=== PATIENT | female | born 1940 | race Caucasian/White ===

== ENCOUNTER 2019-09-08 06:57 | Emergency (ER) | payer OTHER, BC ==
--- OUTSIDE RECORDS SUMMARY | 2019-09-08 06:59 | XMS REPORT ---
:1940 [facility] [address] [place] [address] [address] [place] [address] Care Team Providers Name Role Phone Unavailable Unavailable Unavailable Payers Payer Name Policy Type Policy Number Effective Date Expiration Date Problems This patient has no known problems. Allergies, Adverse Reactions, Alerts Allergy Allergy Status Severity Reaction(s) Onset Inactive Treating Comments Name Type Date Date Clinician No Known DA Active U 2006-12 Contrast -13 Allergies 00:00:0 0 No Known DA Active U 2006-12 Drug -13 Allergies 00:00:0 0 No Known DA Active U 2006-12 Food -13 Allergies 00:00:0 0 No Known DA Active U 2006-12 Other -13 Allergies 00:00:0 0 Medications This patient has no known medications.
[2019-09-08] MEDS ORDERED: NA CHLORIDE 0.9% 500 ML ONE (07:25)
[2019-09-08 07:47] LABS: Absolute Lymphocytes (CBC) 1.2 K/uL (0.7-4.9); Basophils % 0.7 % (0-1.3); Hematocrit 41.4 % (36.0-45.0); Lymphocytes % 15.2 % (15.3-44.8); MPV 10.4 fL (7.6-11.3); RBC Red Blood Cell Count 4.46 M/uL (3.86-4.86)
[2019-09-08 07:49] LABS: Protime INR 0.92
[2019-09-08 07:54] LABS: BUN Blood Urea Nitrogen 20 mg/dL (7-18); Bicarbonate 32 mmol/L (21-32); Glucose Level 112 mg/dL (74-106); Magnesium 2.4 mg/dL (1.8-2.4); Potassium 4.6 mmol/L (3.5-5.1); Sodium Level 141 mmol/L (136-145); Troponin (Emerg Dept Use Only) < 0.02 ng/mL (0.0-0.045)
--- NOTE | 2019-09-08 07:58 | RAD REPORT ---
EXAM DESCRIPTION: CT - Head Brain Wo Cont - 09/08/2019 7:34 am CLINICAL HISTORY: Dizziness COMPARISON: None. TECHNIQUE: Computed axial tomography of the head was obtained. IV contrast was not requested. All CT scans are performed using dose optimization technique as appropriate and may include automated exposure control or mA/KV adjustment according to patient size. FINDINGS: An intracranial bleed is not seen . The ventricles are normal in caliber. No extra-axial fluid collection is noted. Fluid within the sinuses/ mastoids is not seen. IMPRESSION: No acute intracranial abnormality is seen. If patient's symptoms persist MRI of the bra in would be recommended.
[2019-09-08 08:31] LABS: Urine Blood NEGATIVE (NEG); Urine Glucose NEGATIVE (NEG); Urine Protein NEGATIVE (NEG); Urine Specific Gravity 1.015 (1.005-1.030)
--- NOTE | 2019-09-08 09:11 | RAD REPORT ---
EXAM DESCRIPTION: Heidy Angio09/08/2019 8:49 am CLINICAL HISTORY: Syncope and headaches COMPARISON: None TECHNIQUE: 50 cc Isovue 370 was administered intravenously. 3D MIP reconstruction performed All CT scans are performed using dose optimization technique as appropriate and may include automated exposure control or mA/KV adjustment according to patient size. FINDINGS: Mild plaque is present within the the carotid arteries. A high-grade stenosis does not involve the common carotid, internal carotid or external carotid arter ies. The vertebral arteries are codominant without abnormality. IMPRESSION: Mild plaque within the carotid arteries NASCET criteria used. Mild 0-49% stenosis Moderate 50-69% stenosis Severe 70-99% stenosis
--- NOTE | 2019-09-08 09:17 | RAD REPORT ---
EXAM DESCRIPTION: CTHead angio09/08/2019 8:49 am CLINICAL HISTORY: Syncope and headache COMPARISON: None TECHNIQUE: CT angiogram of the head was obtained. 3D MIPS reconstruction performed. All CT scans are performed using dose optimization technique as appropriate and may include automated exposure control or mA/KV adjustment according to patient size. FINDINGS: The basilar,, anterior cerebral, middle cerebral and posterior cerebral arteries are seble l caliber. An aneurysm is not seen. Calcified plaque is present within the distal internal carotid ar teries. origin left posterior cerebral artery A significant stenosis is not noted. IMPRESSION: No acute abnormality displayed
--- NOTE | 2019-09-08 09:39 | EDPHYS ---
Physician Documentation [facility] Name: Meagan Berger Age: 79 yrs Sex: Female : 1940 Arrival Date: 09/08/2019 Time: 06:58 Bed 20 Private MD: ED Physician Babar Doyle HPI: 09/08 07:19 This 79 yrs old Female presents to ER via Ambulatory with complaints of High rn Blood Pressure, Dizziness. 07:19 The patient has elevated blood pressure and discovered this at home. Onset: The rn symptoms/episode began/occurred this morning. Modifying factors:. Severity of symptoms: At its worst the blood pressure was moderate, in the emergency department the blood pressure is unchanged. The patient has experienced similar episodes in the past. Reports high blood pressure since this AM, assoc with dizziness, woke up around 0300 with symptoms, went back to sleep, woke up with right sided head pressure and feeling dizzy, no syncope. Otherwise denies chest pain/sob/abd pain/vomiting/diarrhea/rash. Currently denies dizziness. Denies focal weakness/numbness/vision changes/speech. Reports BP high for last week or so. . Historical: - Allergies: 07:09 No Known Allergies; sv - Home Meds: 07:27 meloxicam oral oral [Active]; losartan 100 mg oral tab [Active]; hydrochlorothiazide 25 sv mg Oral tab [Active]; - PMHx: 07:09 Hypertension; sv - PSHx: 07:09 ankle surgery; sv - Immunization history:: Adult Immunizations up to date. - Social history:: Smoking status: Patient/guardian denies using tobacco. - Ebola Screening: : No symptoms or risks identified at this time. - Family history:: not pertinent. - Hospitalizations: : No recent hospitalization is reported. ROS: 07:19 Constitutional: Negative for fever, chills, and weight loss, Eyes: Negative for injury, rn pain, redness, and discharge, ENT: Negative for injury, pain, and discharge, Neck: Negative for injury, pain, and swelling, Cardiovascular: Negative for chest pain, palpitations, and edema, Respiratory: Negative for shortness of breath, cough, wheezing, and pleuritic chest pain, Abdomen/GI: Negative for abdominal pain, nausea, vomiting, diarrhea, and constipation, Back: Negative for injury and pain, : Negative for injury, bleeding, discharge, and swelling, MS/Extremity: Negative for injury and deformity, Skin: Negative for injury, rash, and discoloration, Neuro: Negative for weakness, numbness, tingling, and seizure. Exam: 07:19 Constitutional: This is a well developed, well nourished patient who is awake, alert, rn and in no acute distress. Head/Face: Normocephalic, atraumatic. Eyes: Pupils equal round and reactive to light, extra-ocular motions intact. Lids and lashes normal. Conjunctiva and sclera are non-icteric and not injected. Cornea within normal limits. Periorbital areas with no swelling, redness, or edema. ENT: MMM Neck: Trachea midline, no thyromegaly or masses palpated, and no cervical lymphadenopathy. Supple, full range of motion without nuchal rigidity, or vertebral point tenderness. No Meningismus. Cardiovascular: Regular rate and rhythm. No pulse deficits. Respiratory: No increased work of breathing, no retractions or nasal flaring. Abdomen/GI: soft, non-tender Skin: Warm, dry, no evidence of cellulitis. MS/ Extremity: Pulses equal, no cyanosis. Neurovascular intact. Full, normal range of motion. Equal circumference. Neuro: Awake and alert, GCS 15, oriented to person, place, time, and situation. Cranial nerves II-XII grossly intact. Motor strength 5/5 in all extremities. Sensory grossly intact. Cerebellar exam normal. 09:23 ECG was reviewed by the Attending Physician. rn Vital Signs: 07:09 BP 184 / 77; Pulse 91; Resp 16; Temp 98.4(O); Pulse Ox 99% ; Weight 58.97 kg; Height 5 sv ft. 4 in. (162.56 cm); Pain 3/10; 07:47 BP 147 / 64; Pulse 67; Resp 18; Pulse Ox 98% on R/A; sv 09:01 BP 151 / 58; Pulse 63; Resp 17; Pulse Ox 99% on R/A; sv 07:09 Body Mass Index 22.32 (58.97 kg, 162.56 cm) sv MDM: 07:04 Patient medically screened. rn 09:24 Differential diagnosis: hypertensive crisis, Malignant HTN, CVA, intracerebral rn hemorrhage. Differential diagnosis: vertigo. Data reviewed: vital signs, nurses notes, lab test result(s), EKG, radiologic studies, CT scan, and as a result, I will discharge patient. Counseling: I had a detailed discussion with the patient and/or guardian regarding: the historical points, exam findings, and any diagnostic results supporting the discharge/admit diagnosis, lab results, radiology results, the need for outpatient follow up, to return to the emergency department if symptoms worsen or persist or if there are any questions or concerns that arise at home. Response to treatment: the patient's symptoms have markedly improved after treatment, and as a result, I will discharge patient. Special discussion: I discussed with the patient/guardian in detail that at this point there is no indication for admission to the hospital. It is understood, however, that if the symptoms persist or worsen the patient needs to return immediately for re-evaluation. ED course: Pt has appt tomorrow with PCP, no acute findings today, neg ct head and ct head/neck angio. Normal neuro exam. . 09:26 Counseling: I had a detailed discussion with the patient and/or guardian regarding: the rn presence of at least one elevated blood pressure reading (>120/80) during this emergency department visit. Special discussion: I have referred the patient to see his PCP for further evaluation of high blood pressure. 09/08 07:16 Order name: Basic Metabolic Panel; Complete Time: 07:59 rn 09/08 07:16 Order name: CBC with Diff; Complete Time: 07:59 rn 09/08 07:16 Order name: Magnesium; Complete Time: 07:59 rn 09/08 07:16 Order name: Protime (+inr); Complete Time: 07:59 rn 09/08 07:16 Order name: Ptt, Activated; Complete Time: 07:59 rn 09/08 07:16 Order name: Troponin (emerg Dept Use Only); Complete Time: 07:59 rn 09/08 07:16 Order name: CT Head Brain wo Cont; Complete Time: 07:59 rn 09/08 07:16 Order name: EKG; Complete Time: 07:17 rn 09/08 07:34 Order name: Glucose, Ancillary Testing; Complete Time: 07:59 EDMS 09/08 08:00 Order name: CT Head Angio; Complete Time: 09:34 rn 09/08 08:00 Order name: CT Neck Angio; Complete Time: 09:23 rn 12/09 08:19 Order name: Urine Dipstick--Ancillary (enter results); Complete Time: 08:33 bd 09/08 07:16 Order name: Cardiac monitoring; Complete Time: 07:38 rn 09/08 07:16 Order name: EKG - Nurse/Tech; Complete Time: 08:44 rn 09/08 07:16 Order name: IV Saline Lock; Complete Time: 07:26 rn 09/08 07:16 Order name: Labs collected and sent; Complete Time: 07: rn 09/08 07:16 Order name: O2 Per Protocol; Complete Time: 07:26 rn 09/08 07:16 Order name: O2 Sat Monitoring; Complete Time: 07: rn 09/08 07:16 Order name: Urine Dipstick-Ancillary (obtain specimen); Complete Time: 08:22 rn EC: Rate is 73 beats/min. Rhythm is regular. Left axis deviation noted. QRS is positive in rn lead I and negative in lead aVF. OR interval is normal. QRS interval is normal. QT interval is normal. No Q waves. T waves are Normal. No ST changes noted. Clinical impression: NSR w/ Non-specific ST/T Changes. Interpreted by me. Reviewed by me. Administered Medications: :26 Drug: NS 0.9% 500 ml Route: IV; Rate: bolus; Site: left antecubital; sv 09:00 Follow up: Response: No adverse reaction; IV Status: Completed infusion; IV Intake: sv 500ml Disposition: 09/08/19 09:25 Discharged to Home. Impression: Dizziness and giddiness. - Condition is Stable. - Discharge Instructions: Dizziness, Hypertension. - Prescriptions for Meclizine 25 mg Oral Tablet - take 1 tablet by ORAL route every 8 hours As needed; 30 tablet. - Medication Reconciliation Form, Thank You Letter, Antibiotic Education, Prescription Opioid Use form. - Follow up: Private Physician; When: As needed; Reason: Recheck today's complaints, Re-evaluation by your physician. - Problem is new. - Symptoms have improved. Signatures: Dispatcher [employer] Erin Kuhn RN RN sv Nieto, Roman, MD MD project management intern: (The following items were deleted from the chart) 07:22 07:19 Constitutional: Negative for fever, chills, and weight loss, Eyes: Negative for rn injury, pain, redness, and discharge, ENT: Negative for injury, pain, and discharge, Neck: Negative for injury, pain, and swelling, Cardiovascular: Negative for chest pain, palpitations, and edema, Respiratory: Negative for shortness of breath, cough, wheezing, and pleuritic chest pain, Abdomen/GI: Negative for abdominal pain, nausea, vomiting, diarrhea, and constipation, Back: Negative for injury and pain, : Negative for injury, bleeding, discharge, and swelling, MS/Extremity: Negative for injury and deformity, Skin: Negative for injury, rash, and discoloration, Neuro: Negative for headache, weakness, numbness, tingling, and seizure, rn 08:05 08:01 Neck Angio+CT.RAD.BRZ ordered. EDAK EDMS 09:51 09:25 09/08/2019 09:25 Discharged to Home. Impression: Dizziness and giddiness. sv Condition is Stable. Forms are Medication Reconciliation Form, Thank You Letter, Antibiotic Education, Prescription Opioid Use. Follow up: Private Physician; When: As needed; Reason: Recheck today's complaints, Re-evaluation by your physician. Problem is new. Symptoms have improved. rn
--- NOTE | 2019-09-08 09:39 | ER ---
Nurse's Notes [facility] Name: Meagan Berger Age: 79 yrs Sex: Female : 1940 Arrival Date: 09/08/2019 Time: 06:58 Bed 20 Private MD: Diagnosis: Dizziness and giddiness Presentation: 09/08 07:01 Presenting complaint: Patient states: went to bed around 2330 with no symptoms like sv right now. c/o right temporal "pressure" and dizziness around 0300, checked her BP and it was high; went back to sleep. Woke up again around 0400 with the same symptoms. Reports taking her medicine daily as prescribed and her BP have been elevated the last week. Transition of care: patient was not received from another setting of care. Onset of symptoms was September 08, 2019 at 03:00. Risk Assessment: Do you want to hurt yourself or someone else? Patient reports no desire to harm self or others. Care prior to arrival: None. 07:01 Method Of Arrival: Ambulatory sv 07:01 Acuity: RAMESH 2 sv 07:15 Initial Sepsis Screen: Does the patient meet any 2 criteria? No. Patient's initial sv sepsis screen is negative. Does the patient have a suspected source of infection? No. Patient's initial sepsis screen is negative. Triage Assessment: 07:05 General: Appears in no apparent distress. comfortable, well groomed, well developed, sv Behavior is calm, cooperative, appropriate for age. Pain: Complains of pain in right amish Pain currently is 3 out of 10 on a pain scale. Quality of pain is described as pressure, Pain began 0300 Is continuous. Neuro: Level of Consciousness is awake, alert, obeys commands, Oriented to person, place, time, situation, Manager [employer] are equal bilaterally Moves all extremities. Full function Gait is steady, Speech is normal, Facial symmetry appears normal, Denies dizziness, numbness. Cardiovascular: Patient's skin is warm and dry. Pulses are 3+ in right brachial artery and left brachial artery Chest pain is denied. Respiratory: Airway is patent Respiratory effort is even, unlabored, Respiratory pattern is regular, symmetrical. Derm: Skin is pink, warm \\T\\ dry. Musculoskeletal: Range of motion: intact in all extremities. Historical: - Allergies: 07:09 No Known Allergies; sv - Home Meds: 07:27 meloxicam oral oral [Active]; losartan 100 mg oral tab [Active]; hydrochlorothiazide 25 sv mg Oral tab [Active]; - PMHx: 07:09 Hypertension; sv - PSHx: 07:09 ankle surgery; sv - Immunization history:: Adult Immunizations up to date. - Social history:: Smoking status: Patient/guardian denies using tobacco. - Ebola Screening: : No symptoms or risks identified at this time. - Family history:: not pertinent. - Hospitalizations: : No recent hospitalization is reported. Screenin:05 VAN Screening: Arm Drift: Patient shows no arm weakness. Patient is VAN negative. sv 07:10 Abuse screen: Denies threats or abuse. Denies injuries from another. Nutritional sv screening: No deficits noted. Tuberculosis screening: No symptoms or risk factors identified. Fall Risk No fall in past 12 months (0 pts). No secondary diagnosis (0 pts). No IV (0 pts). Ambulatory Aid- None/Bed Rest/Nurse Assist (0 pts). Gait- Normal/Bed Rest/Wheelchair (0 pts) Mental Status- Oriented to own ability (0 pts). Total Perez Fall Scale indicates No Risk (0-24 pts). Assessment: 07:47 Reassessment: Patient appears in no apparent distress at this time. No changes from sv previously documented assessment. Patient and/or family updated on plan of care and expected duration. Pain level reassessed. Patient is alert, oriented x 3, equal unlabored respirations, skin warm/dry/pink. 09:27 Reassessment: Patient appears in no apparent distress at this time. No changes from sv previously documented assessment. Patient and/or family updated on plan of care and expected duration. Pain level reassessed. Patient is alert, oriented x 3, equal unlabored respirations, skin warm/dry/pink. Dr Doyle at the bedside speaking with pt regarding results. 09:50 Reassessment: Patient appears in no apparent distress at this time. No changes from sv previously documented assessment. Patient and/or family updated on plan of care and expected duration. Pain level reassessed. Patient is alert, oriented x 3, equal unlabored respirations, skin warm/dry/pink. Vital Signs: 07:09 BP 184 / 77; Pulse 91; Resp 16; Temp 98.4(O); Pulse Ox 99% ; Weight 58.97 kg; Height 5 sv ft. 4 in. (162.56 cm); Pain 3/10; 07:47 BP 147 / 64; Pulse 67; Resp 18; Pulse Ox 98% on R/A; sv 09:01 BP 151 / 58; Pulse 63; Resp 17; Pulse Ox 99% on R/A; sv 07:09 Body Mass Index 22.32 (58.97 kg, 162.56 cm) sv ED Course: 06:58 Patient arrived in ED. as 07:00 Erin Sheikh, RN is Primary Nurse. sv 07:01 Patient has correct armband on for positive identification. Bed in low position. Call sv light in reach. Adult w/ patient. Pulse ox on. NIBP on. Door closed. Head of bed elevated. 07:04 Lex Romeo NP is PHCP. pm1 07:04 Babar Doyle MD is Attending Physician. rn 07:05 ED physician to see patient. sv 07:09 Triage completed. sv 07:10 Arm band placed on. sv 07:20 Inserted saline lock: 20 gauge in left antecubital area, using aseptic technique. Blood sv collected. Flushed left antecubital with 5 ml normal saline. 07:26 Warm blanket given. sv 07:[address] via stretcher. sv 07:33 CT Head Brain wo Cont In Process Unspecified. EDMS 07:[address]. sv 07:44 Awaiting lab results, Awaiting radiology results. sv 08:10 Urine collected: clean catch specimen, clear. dh3 08:21 Urine Dipstick--Ancillary (enter results) Sent. sv 08:[address] Scan. sv 08:[address] via wheelchair. sv 08:37 Patient moved back from CT. sv 08:37 Awaiting radiology results. sv 08:51 CT Head Angio In Process Unspecified. EDMS 08:51 CT Neck Angio In Process Unspecified. EDMS 09:07 EKG done, by infectious disease technician. reviewed by Babar Doyle MD. tc 09:12 Awaiting radiology results. sv 09:50 No provider procedures requiring assistance completed. IV discontinued, intact, sv bleeding controlled, No redness/swelling at site. Pressure dressing applied. Administered Medications: 07:26 Drug: NS 0.9% 500 ml Route: IV; Rate: bolus; Site: left antecubital; sv 09:00 Follow up: Response: No adverse reaction; IV Status: Completed infusion; IV Intake: sv 500ml Intake: 09:00 IV: 500ml; Total: 500ml. sv Outcome: : Discharge ordered by . rn :51 Discharged to home ambulatory, with friend. sv :51 Condition: stable :51 Discharge instructions given to patient, Instructed on discharge instructions, follow up and referral plans. medication usage, Demonstrated understanding of instructions, follow-up care, medications, Prescriptions given X 1. :51 Patient left the ED. sv Signatures: Dispatcher [employer] EDMS Erin Sheikh RN RN sv Martinez, Amelia as Nieto, Roman, MD MD rn Callis, Tiffany, digital production artist EKG Ttc Lex Romeo, DINORAH POCKET SECRETARY ASSEMBLER pm1 Leydi Yuen 3 Corrections: (The following items were deleted from the chart) 08:22 07:09 BP 184 / 77; Pulse 91bpm; Resp 16bpm; Pulse Ox 99%; 58.97 kg; Height 5 ft. 4 in.; sv BMI: 22.3; Pain 3/10; sv
[2019-09-08 10:09] VITALS: TEMP 98.4
[2019-09-08 10:13] VITALS: BP 151/58; O2SAT 99
--- NOTE | 2019-09-08 13:01 | EKG ---
Test Date: 2019-09-08 Test Time: 08:45:50 Intelligence Consultant: LESTER MEASUREMENT RESULTS: Intervals: Rate: 73 CO: 202 QRSD: 88 QT: 392 QTc: 431 Hastings: P: 55 CO: 202 QRS: -37 T: 42 INTERPRETIVE STATEMENTS: Normal sinus rhythm Left axis deviation Voltage criteria for left ventricular hypertrophy Abnormal ECG Compared to ECG 04/08/1994 13:02:00 Left-axis deviation now present Sinus arrhythmia no longer present Electronically Signed On 09-08-19 13:00:27 [employer] by Mason Ramirez
== END 2019-09-08 09:51 | disposition home or self-care (01) ==
LOC: ER 06:57
DX: R42 Dizziness and giddiness (principal)
CPT/HCPCS: 96361; 93005; 85025; 80048; 36415; 83735; 85610; 82947; 85730; 81003; 84484; 70450; 70496; 70498; 96360; 99285; Q9967; J7040

== ENCOUNTER 2023-03-31 08:31 | Emergency (ER) | payer OTHER ==
--- OUTSIDE RECORDS SUMMARY | 2023-03-31 08:38 | XMS REPORT | Continuity of Care Document ---
:1940 Author Organization [facility] t Address [address] [place] [address] [place] [id number] Care Team Providers Name Role Phone Jerzy Sotelo Primary Care Physician Sonal Berrios MD Attending Clinician [phone] Heri Pauline Farr MA Attending Clinician Unavailable Rg Isbell MD Attending Clinician Jerzy Sotelo Attending Clinician Power Zaman MD Attending Clinician Jose A Flores RPH Attending Clinician Unavailable Maurice Henderson Attending Clinician Unavailable Rabia Isidro Attending Clinician Unavailable Maryam Holley MA Attending Clinician Unavailable LEAH VALLADARES Attending Clinician Unavailable MAURICE HENDERSON M.D. Attending Clinician Unavailable Kurt Villeda Attending Clinician Maurice Henderson Admitting Clinician Unavailable Physician, No Primary or Family Admitting Clinician Unavaila ble Payers Payer Name Policy Type Policy Number Effective Date Expiration Date S ource Problems Condition Condition Condition Status Onset Resolution Last Treating Co mments Source Name Details Category Date Date Treatment Clinician Date Need for Need for Disease Active Metho di hepatitis hepatitis - st B B 00:00: Hospita vaccinatio vaccinatio 00 l n n Inflammato Inflammato Disease Active 2021-10 M ethodi ry ry 10-15 st arthritis arthritis 00:00: Hosp leticia 00 l CKD CKD Disease Active 2021-10 Methodi (chronic (chronic 10-15 kidney kidney 00:00: Hospita disease), disease), 00 l stage III stage III Low Low Disease Active Methodi vitamin D vitamin D 12-19 level level 00:00: Hospita 00 l Prediabete Prediabete Disease Active M ethodi s s 12-19 00:00: Hospita 00 l Hyperlipid Hyperlipid Disease Active M ethodi emia emia 12-19 00:00: Hospita 00 l Hypertensi Hypertensi Disease Active M ethodi on on 12-19 00:00: Hospita 00 l Pseudophak Pseudophak Disease Active M ethodi ia ia 02-01 st 00:00: Hospita 00 l Pseudophak Pseudophak Disease Active M ethodi ia ia 02-01 00:00: Hospita 00 l Bilateral Bilateral Disease Active Met hodi posterior posterior 02-01 st capsular capsular 00:00: Hospit a opacificat opacificat 00 l ion ion Osteoporos Osteoporos Disease Active M ethodi is is 01-20 00:00: Hospita 00 l Osteoarthr Osteoarthr Disease Active 2019-10 M ethodi itis itis 0 st 00:00: Hospita 00 l Uveitis Uveitis Disease Active Methodi 05-08 00:00: Hospita 00 l 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 05-08 borderline borderline 00:00: Ho spita glaucoma glaucoma 00 l BDDC-COLON BDDC-COLO Diagnosis Active 2014-05-04 Memoria SCREENING N 05-01 11:19:00 l SCREENING 00:00: [place] Active 00 05/01/2014 [facility] NEW PT/ NEW PT/ Diagnosis Active 2014-04-29 Memoria COLONOSCOP COLONOSCOP 04-16 15:54:00 l Y/ Y/ 00:00: [place] HEMROIDS / HEMROIDS / 00 FAMILY H FAMILY H Active 04/16/2014 [facility] 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 7-25 st occlusion occlusion 00:00: Hosp leticia 00 l Pure Pure Disease Active Methodi hyperchole hyperchole 7-[address] sterolemia sterolemia 00:00: Ho spita 00 l Hyperlipid Hyperlipid Problem Active U T emia emia Physici ans Hypertensi Hypertensi Problem Active U T on on Physici ans Low Low Problem Active UT vitamin D vitamin D Phys ici level level ans Carotid Carotid Problem Active [facility] [place] Physici ans Cough in Cough in Problem Active UT adult adult Physici ans Hyperglyce Hyperglyce Problem Active U T fracisco fracisco Physici ans Preventive Preventive Problem Active U T antibiotic antibiotic Ph ysici ans Wheezing Wheezing Problem Active UT Physici ans ROUTINE ROUTINE Diagnosis Active 2014-04-29 [facility] 15:54:00 l EXAM EXAM [place] Active [facility] Benign Benign Problem Resolve 2014-05-06 [facility] oria essential essential d 23:31:36 l hypertensi hypertensi He rmann on on (disorder) (disorder) Resolved Problem 05/06/2014 [facility] Generalize Generaliz Problem Resolve 2014-05-06 Memoria d ed d 23:31:36 l osteoarthr osteoarthr He rmann itis of itis of the hand the hand (disorder) (disorder) Resolved Problem 05/06/2014 [facility] Hyperchole Hyperchol Problem Resolve 2014-05-06 [facility] sterolemia esterolemi d 23:31:36 l (disorder) a Nik n (disorder) Resolved Problem 05/06/2014 [facility] History of History Problem Resolve 2014-05-06 [facility] polyp of of polyp d 23:31:36 l colon of colon [place] (situation (situation ) ) Resolved Problem 05/06/2014 [facility] Allergies, Adverse Reactions, Alerts Allergy Allergy Status Severity Reaction(s) Onset Inactive Treating Comm ents Source Name Type Date Date Clinician No Known Propensi Active Method i Drug ty to 04-06 st Allergie adverse 00:00: Hospita s reaction 00 l s to drug No Known DA Active U [facility] Contrast 4- [place] Allergie 00:00: d s 00 [facility] No Known DA Active U [facility] Drug - [place] Allergie 00:00: d s [facility] No Known DA Active U [facility] Food 4-13 [place] Allergie 00:00: d s 00 [facility] No Known DA Active U 2006- [facility] Other 4-13 [place] Allergie 00:[facility]: d s [facility] Family History Family Member Diagnosis Comments Start Date Stop Date Source Natural brother Cancer [facility] Natural brother Hypertension [facility] Natural [facility] father Hypertension [facility] Maternal Stroke Bahai grandmother [facility] Natural mother Heart disease [facility] Natural mother Hyperlipidemia Method [facility] Natural mother Hypertension [facility] Other Glaucoma [facility] Other Heart disease [facility] Other Hypertension [facility] Other Macular degeneration Meth [facility] Social History Social Habit Start Date Stop Date Quantity Comments Source Gender identity [facility] Sexual orientation Method [facility] Alcohol intake 2023-02-12 2023-02-12 Current drinker [facility]o dist 00:00:00 00:00:00 of [facility] (finding) History of Social 2023-02-12 2023-02-[address] function 00:00:00 00:00:00 Hospital Tobacco use and 2022-08-15 2022-08-15 Smokeless Bahai exposure 00:00:00 00:00:00 tobacco non-user [facility] Alcohol Comment 2022-02-21 2022-02-21 rarely Bahai 00:00:00 00:00:00 [facility] Social History 2014-04-29 2014-04-29 [facility]rick 21:20:48 21:20:48 Sex [birth year] Bahai 00:00:00 00:00:00 [facility] Smoking Status Start Date Stop Date Source Never smoked tobacco [facility] ospital Medications Ordered Filled Start Stop Current Ordering Indication Dosage Frequency Signature Comments Components Source Medication Medication Date Date Medication? Clinician (SIG) Name Name tobramycin- 2022- No 1[drp] Q.25D Administer Methodi dexAMETHaso 02-[address] ne 00:00: 04:59 the right Hospita (Tobradex) 00 :00 eye 4 l 0.3-0.1 % (four) ophthalmic times a solution day for 7 days. neomycin-po 2022- No Q.25D Administer Methodi lymyxin-dex 02-[address] AMETHasone 00:00: 04:59 right eye H ospita (MAXITROL) 00 :00 every 6 l 3.5 (six) mg/g-10,000 hours for unit/g-0.1 7 days. % ointment Recommend applying 4 times per day to right lower eyelid sulfaSALAzi 2022-0 2023- No 500mg Q.5D Take 1 Me thodi ne 5-15 05-[address] (AZULFIDINE 11:51: 00:00 (500 mg Ho spita ) 500 mg 38 :00 total) by l tablet mouth 2 (two) times a day. denosumab 2022-0 Yes 60mg Q180D Inject 1 Met hodi (PROLIA) 60 5-15 mL ([address] mg/mL 11:50: total) Hospita syringe 37 under the l syringe skin every 6 (six) months. omega-3 2022-0 Yes 2g QD Take 2 Methodi fatty 5-[address] acids-fish 11:10: (2 g Hospita oil 36 total) by l 300-1,000 mouth mg capsule daily. tumeric-gin 0 Yes Take by Met hodi g-olive-ore 5-[address] g-capryl 11:09: Hospita 100 mg-150 51 l mg- 50 mg-150 mg capsule zinc 2022-0 Yes 1{capsu QD Take 1 Methodi sulfate 5-15 le} capsule by st (ZINCATE) 11:09: mouth Hospita 50 mg zinc 51 daily. l (220 mg) capsule calcium 2022-0 Yes 1{tbl} Q.5D Take 1 Method i carbonate/v 5-[address] itamin D3 11:09: mouth 2 Hospi ta (CALCIUM 51 (two) l 600 WITH times a VITAMIN D3 day. ORAL) hydroxychlo 2022-0 Yes 200mg QD Take 1 Met hodi roquine 5-[address] (PLAQUENIL) 11:09: (200 mg Hos yoni 200 mg 51 total) by l tablet mouth daily. aspirin 81 2022-0 Yes 81mg QD Chew 1 Metho di mg chewable 5-15 tablet (81 st tablet 11:09: mg total) Hospit a 51 daily. l guanFACINE 2022-0 Yes 2mg QD Take 1 Metho di (TENEX) 2 5-15 tablet (2 st MG tablet 11:09: mg total) Hos yoni 51 by mouth l nightly. tiZANidine 2021-1 Yes 4mg QD Take 1 Metho di (ZANAFLEX) 2-28 tablet (4 st 4 MG tablet 00:00: mg total) H ospita 00 by mouth l nightly. cholecalcif 2021-10 202- No 2000U Q.5W Take 2,000 Methodi brigid, 1-15 11-[address] vitamin D3, 10:23: 00:00 mouth 2 Ho spita (VITAMIN 04 :00 (two) l D3) 2,000 times a unit week. capsule capsule hydrOXYchlo 2021-0 Yes 200mg QD Take 200 M ethodi roQUINE 8-[address] (PLAQUENIL) 11:29: mouth Hospi ta 200 mg 01 daily. l tablet sulfaSALAzi 2021-0 Yes 500mg Q.5D Take 500 M ethodi ne 8-[address] (AZULFIDINE 11:29: mouth 2 Hos yoni ) 500 mg 01 (two) l tablet times a day. Prolensa 2022-0 Yes 1[drp] QD Administer M ethodi 0.07 % 7-[address] ophthalmic 00:00: into the Hos yoni solution 00 left eye l daily. loteprednol 2022-0 Yes 1[drp] QD Administer Methodi etabonate 7-[address] (Lotemax) 00:00: into the Hosp leticia 0.5 % 00 left eye l drops,gel daily. Prolensa 2-0 Yes 1[drp] QD Administer M ethodi 0.07 % 7-[address] ophthalmic 00:00: into the Hos yoni solution 00 left eye l daily. loteprednol 2022-0 Yes 1[drp] QD Administer Methodi etabonate 7-[address] (Lotemax) 00:00: into the Hosp leticia 0.5 % 00 left eye l drops,gel daily. bromfenac 2022-0 Yes 1[drp] QD Administer Methodi (XIBROM) 7-[address] 0.09 % 00:00: into the Hospita ophthalmic 00 left eye l solution daily. bromfenac 2022-0 Yes 1[drp] QD Administer Methodi (XIBROM) 7-[address] 0.09 % 00:00: into the Hospita ophthalmic 00 left eye l solution daily. calcium 0 Yes 1{tbl} Q.5D Take 1 Method i carbonate/v 5-[address] itamin D3 10:31: mouth 2 Hospi ta (CALCIUM 01 (two) l 600 WITH times a VITAMIN D3 day. ORAL) calcium 2021- No 1{tbl} Q.5D Take 1 Metho di carbonate-v -21 02-[address] itamin D3 10:30: 00:00 mouth 2 Hosp leticia 500 mg-200 27 :00 (two) l unit per times a tablet day with meals. amLODIPine 2021- No 5mg QD Take 5 mg M ethodi (NORVASC) 5 02-21 05-[address] mg tablet 10:30: 00:00 daily. Hospi ta 16 :00 l cholecalcif 0 Yes 2000U Q.5W Take 2,000 Methodi brigid, 5-[address] vitamin D3, 10:03: mouth 2 Hos yoni (VITAMIN 08 (two) l D3) 2,000 times a unit week. capsule capsule tumeric-gin 0 Yes Take by Met hodi g-olive-ore 5-[address] g-capryl 10:03: Hospita 100 mg-150 08 l mg- 50 mg-150 mg capsule zinc 0 Yes 1{capsu QD Take 1 Methodi sulfate 5-24 le} capsule by st (ZINCATE) 10:03: mouth Hospita 50 mg zinc 08 daily. l (220 mg) capsule loteprednol 2021- No 1[drp] QD Administer Methodi etabonate 03-[address] (Lotemax) 00:00: 00:00 into the Hos yoni 0.5 % 00 :00 left eye l drops,gel daily. loteprednol 2020-2- No 1[drp] QD Administer Methodi etabonate 03-[address] (Lotemax) 00:00: 00:00 into the Hos yoni 0.5 % 00 :00 left eye l drops,gel daily. Prolensa 2021- No 1[drp] QD Administer Methodi 0.07 % 5-04 07-[address] ophthalmic 00:00: 00:00 into the Ho spita solution 00 :00 left eye l daily. Prolensa 2- No 1[drp] QD Administer Methodi 0.07 % 5-04 -[address] ophthalmic 00:00: 00:00 into the Ho spita solution 00 :00 left eye l daily. Prolia 60 Prolia 60 2019-10 Yes SIg 1 ml UT MG/ML MG/ML 2-21 every 6 Physici Subcutaneou Subcutaneou 00:00: months ans s Solution s Solution 00 Prefilled Prefilled Syringe Syringe olopatadine Yes 1[drp] QD Apply 1 M [facility] ([facility]) 6-[address] 0.2 % drops 00:00: eye daily. Hospita 00 l olopatadine Yes 1[drp] QD Apply 1 M ethodi ([facility]) 6-[address] 0.2 % drops 00:00: eye daily. Hospita 00 l amLODIPine amLODIPine 2018-10 Yes MAURICE QD TAKE 1 UT Besylate 5 Besylate 5 2-10 BEATRIZ TABLET Physici MG Oral MG Oral 00:00: M.D. DAILY ans Tablet Tablet 00 DIRECTED. Mobic 15 MG Mobic 15 MG Yes 1 QD TAKE 1 UT Oral Tablet Oral Tablet 5-25 TABLET Physici 00:00: Daily PRN ans 00 PAIN. TAKE WITH FOOD Losartan Losartan Yes UT Potassium Potassium 5-25 Physi ci 100 MG Oral 100 MG Oral 00:00: ans Tablet Tablet 00 hydroCHLORO hydroCHLORO Yes 1 QD TAKE 1 UT thiazide 25 thiazide 25 5-25 TABLET Physici MG Oral MG Oral 00:00: DAILY. ans Tablet Tablet 00 Simvastatin Simvastatin Yes QD TAKE 1 UT 40 MG Oral 40 MG Oral 5-25 TABLET P hysici Tablet Tablet 00:00: DAILY IN ans 00 THE EVENING. guanFACINE guanFACINE Yes Q0.5D TAKE 1 UT HCl - 1 MG HCl - 1 MG 5-25 TABLET P hysici Oral Tablet Oral Tablet 00:00: TWICE ans 00 DAILY. tiZANidine tiZANidine Yes .5 QD TAKE 0.5 UT HCl - 4 MG HCl - 4 MG 5-25 CAPSULE Physici Oral Oral 00:00: DAILY ans Capsule Capsule 00 Lotemax 0.5 Lotemax 0.5 2017 Yes 1 Q0.25D INSTILL 1 UT % % 5-25 DROP IN Physici Ophthalmic Ophthalmic 00:00: EACH EYE 4 ans Gel Gel 00 TIMES A DAY Folic Acid Folic Acid Yes 1 QD TAKE 1 UT 1 MG Oral 1 MG Oral 5-25 TABLET Phy sici Tablet Tablet 00:00: DAILY. ans 00 Bromfenac Bromfenac Yes INSTILL UT Sodium 0.09 Sodium 0.09 5-25 INTO P hysici % SOLN % SOLN 00:00: AFFECTED ans 00 EYE(S) DIRECTED. Co Q 10 10 Co Q 10 10 Yes TAKE 1 UT MG Oral MG Oral 5-25 CAPSULE Physic i Capsule Capsule 00:00: 2-3 TIMES an s 00 DAILY DIRECTED. Aspirin Aspirin Yes 1 QD TAKE 1 UT Adult Low Adult Low 5-25 TABLET Phy sici Dose 81 MG Dose 81 MG 00:00: DAILY. ans Oral Tablet Oral Tablet 00 Delayed Delayed Release Release Calcium 600 Calcium 600 Yes 1 QD TAKE 1 UT MG Oral MG Oral 5-25 TABLET Physici Tablet Tablet 00:00: DAILY. ans 00 simvastatin Yes TK 1 Method i (ZOCOR) 40 6-[address] MG tablet 00:00: MOUTH Hospita 00 DAILY AT l BEDTIME simvastatin Yes TK 1 Method i (ZOCOR) 40 6-[address] MG tablet 00:00: MOUTH Hospita 00 DAILY AT l BEDTIME meloxicam 2021- No TK 1 T PO Me thodi (MOBIC) 15 6-27 05-[address] MG tablet 00:00: 00:00 Hospita 00 :00 l hydrochloro Yes TK 1 T PO M ethodi thiazide 6-[address] (HYDRODIURI 00:00: Hospit a L) 25 MG 00 l tablet losartan Yes TK 1 T PO Meth yareli (COZAAR) 50 6-[address] MG tablet 00:00: Hospita 00 l hydrochloro Yes TK 1 T PO M ethodi thiazide 6-[address] (HYDRODIURI 00:00: Hospit a L) 25 MG 00 l tablet losartan Yes 100mg QD Take 1 Method i (COZAAR) 6-[address] 100 MG 00:00: (100 mg Hospita tablet 00 total) by l mouth daily. alendronate 2021- No TK 1 T PO Methodi (FOSAMAX) 02-17 05-[address] 70 MG 00:00: 00:00 WEEK Hospita tablet 00 :00 l POLYETHYLEN Yes 240 ml, Mem oria E GLYCOL 7-30 PO, l 3350 60 22:24: Q10Min, # Vivienne nn MG/ML / 00 1 ea, 0 Potassium Refill(s), Chloride Pharmacy: 0.01 MEQ/ML [facility] Sodium cy #6704 Bicarbonate 0.02 MEQ/ML / Sodium Chloride 0.025 MEQ/ML / sodium sulfate 0.04 MEQ/ML Oral Solution [Golytely] POLYETHYLEN Yes 240 ml, Mem oria E GLYCOL 7-30 PO, l 3350 60 22:24: Q10Min, # Vivienne nn MG/ML / 00 1 ea, 0 Potassium Refill(s), Chloride Pharmacy: 0.01 MEQ/ML [facility] Sodium [facility] #6704 Bicarbonate 0.02 MEQ/ML / Sodium Chloride 0.025 MEQ/ML / sodium sulfate 0.04 MEQ/ML Oral Solution [Golytely] POLYETHYLEN Yes 240 ml, Mem oria E GLYCOL 7-30 PO, l 3350 60 22:24: Q10Min, # Vivienne nn MG/ML / 00 1 ea, 0 Potassium Refill(s), Chloride Pharmacy: 0.01 MEQ/ML [facility] Sodium [facility] #6704 Bicarbonate 0.02 MEQ/ML / Sodium Chloride 0.025 MEQ/ML / sodium sulfate 0.04 MEQ/ML Oral Solution [Golytely] POLYETHYLEN Yes 240 ml, Mem oria E GLYCOL 7-30 PO, l 3350 60 22:24: Q10Min, # Vivienne nn MG/ML / 00 1 ea, 0 Potassium Refill(s), Chloride Pharmacy: 0.01 MEQ/ML [facility] Sodium [facility] #6704 Bicarbonate 0.02 MEQ/ML / Sodium Chloride 0.025 MEQ/ML / sodium sulfate 0.04 MEQ/ML Oral Solution [Golytely] POLYETHYLEN Yes 240 ml, Mem oria E GLYCOL 7-30 PO, l 3350 60 22:24: Q10Min, # Vivienne nn MG/ML / 00 1 ea, 0 Potassium Refill(s), Chloride Pharmacy: 0.01 MEQ/ML [facility] Sodium [facility] #6704 Bicarbonate 0.02 MEQ/ML / Sodium Chloride 0.025 MEQ/ML / sodium sulfate 0.04 MEQ/ML Oral Solution [Golytely] POLYETHYLEN Yes 240 ml, Mem oria E GLYCOL 7-30 PO, l 3350 60 22:24: Q10Min, # Vivienne nn MG/ML / 00 1 ea, 0 Potassium Refill(s), Chloride Pharmacy: 0.01 MEQ/ML [facility] Sodium [facility] #6704 Bicarbonate 0.02 MEQ/ML / Sodium Chloride 0.025 MEQ/ML / sodium sulfate 0.04 MEQ/ML Oral Solution [Golytely] POLYETHYLEN Yes 240 ml, Mem oria E GLYCOL 7-30 PO, l 3350 60 22:24: Q10Min, # Vivienne nn MG/ML / 00 1 ea, 0 Potassium Refill(s), Chloride Pharmacy: 0.01 MEQ/ML [facility] Sodium [facility] #6704 Bicarbonate 0.02 MEQ/ML / Sodium Chloride 0.025 MEQ/ML / sodium sulfate 0.04 MEQ/ML Oral Solution [Golytely] POLYETHYLEN Yes 240 ml, Mem oria E GLYCOL 7-30 PO, l 3350 60 22:24: Q10Min, # Vivienne nn MG/ML / 00 1 ea, 0 Potassium Refill(s), Chloride Pharmacy: 0.01 MEQ/ML [facility] Sodium [facility] #6704 Bicarbonate 0.02 MEQ/ML / Sodium Chloride 0.025 MEQ/ML / sodium sulfate 0.04 MEQ/ML Oral Solution [Golytely] POLYETHYLEN Yes 240 ml, Mem oria E GLYCOL 7-30 PO, l 3350 60 22:24: Q10Min, # Vivienne nn MG/ML / 00 1 ea, 0 Potassium Refill(s), Chloride Pharmacy: 0.01 MEQ/ML [facility] Sodium cy #6704 Bicarbonate 0.02 MEQ/ML / Sodium Chloride 0.025 MEQ/ML / sodium sulfate 0.04 MEQ/ML Oral Solution [Golytely] POLYETHYLEN Yes 240 ml, Mem oria E GLYCOL 7-30 PO, l 3350 60 22:24: Q10Min, # Vivienne nn MG/ML / 00 1 ea, 0 Potassium Refill(s), Chloride Pharmacy: 0.01 MEQ/ML [facility] Sodium cy #6704 Bicarbonate 0.02 MEQ/ML / Sodium Chloride 0.025 MEQ/ML / sodium sulfate 0.04 MEQ/ML Oral Solution [Golytely] POLYETHYLEN Yes 240 ml, Mem oria E GLYCOL 7-30 PO, l 3350 60 22:24: Q10Min, # Vivienne nn MG/ML / 00 1 ea, 0 Potassium Refill(s), Chloride Pharmacy: 0.01 MEQ/ML [facility] Sodium [facility] #6704 Bicarbonate 0.02 MEQ/ML / Sodium Chloride 0.025 MEQ/ML / sodium sulfate 0.04 MEQ/ML Oral Solution [Golytely] POLYETHYLEN Yes 240 ml, Mem oria E GLYCOL 7-30 PO, l 3350 60 22:24: Q10Min, # Vivienne nn MG/ML / 00 1 ea, 0 Potassium Refill(s), Chloride Pharmacy: 0.01 MEQ/ML [facility] Sodium [facility] #6704 Bicarbonate 0.02 MEQ/ML / Sodium Chloride 0.025 MEQ/ML / sodium sulfate 0.04 MEQ/ML Oral Solution [Golytely] POLYETHYLEN Yes 240 ml, Mem oria E GLYCOL 7-30 PO, l 3350 60 21:46: Q10Min, # Vivienne nn MG/ML / 00 1 ea, 0 Potassium Refill(s), Chloride Pharmacy: 0.01 MEQ/ML [facility] Sodium [facility] #6704 Bicarbonate 0.02 MEQ/ML / Sodium Chloride 0.025 MEQ/ML / sodium sulfate 0.04 MEQ/ML Oral Solution [Golytely] POLYETHYLEN Yes 240 ml, Mem oria E GLYCOL 7-30 PO, l 3350 60 21:46: Q10Min, # Vivienne nn MG/ML / 00 1 ea, 0 Potassium Refill(s), Chloride Pharmacy: 0.01 MEQ/ML [facility] Sodium [facility] #6704 Bicarbonate 0.02 MEQ/ML / Sodium Chloride 0.025 MEQ/ML / sodium sulfate 0.04 MEQ/ML Oral Solution [Golytely] POLYETHYLEN Yes 240 ml, Mem oria E GLYCOL 7-30 PO, l 3350 60 21:46: Q10Min, # Vivienne nn MG/ML / 00 1 ea, 0 Potassium Refill(s), Chloride Pharmacy: 0.01 MEQ/ML [facility] Sodium [facility] #6704 Bicarbonate 0.02 MEQ/ML / Sodium Chloride 0.025 MEQ/ML / sodium sulfate 0.04 MEQ/ML Oral Solution [Golytely] POLYETHYLEN Yes 240 ml, Mem oria E GLYCOL 7-30 PO, l 3350 60 21:46: Q10Min, # Vivienne nn MG/ML / 00 1 ea, 0 Potassium Refill(s), Chloride Pharmacy: 0.01 MEQ/ML [facility] Sodium [facility] #6704 Bicarbonate 0.02 MEQ/ML / Sodium Chloride 0.025 MEQ/ML / sodium sulfate 0.04 MEQ/ML Oral Solution [Golytely] POLYETHYLEN Yes 240 ml, Mem oria E GLYCOL 7-30 PO, l 3350 60 21:46: Q10Min, # Vivienne nn MG/ML / 00 1 ea, 0 Potassium Refill(s), Chloride Pharmacy: 0.01 MEQ/ML [facility] Sodium [facility] #6704 Bicarbonate 0.02 MEQ/ML / Sodium Chloride 0.025 MEQ/ML / sodium sulfate 0.04 MEQ/ML Oral Solution [Golytely] POLYETHYLEN Yes 240 ml, Mem oria E GLYCOL 7-30 PO, l 3350 60 21:46: Q10Min, # Vivienne nn MG/ML / 00 1 ea, 0 Potassium Refill(s), Chloride Pharmacy: 0.01 MEQ/ML [facility] Sodium [facility] #6704 Bicarbonate 0.02 MEQ/ML / Sodium Chloride 0.025 MEQ/ML / sodium sulfate 0.04 MEQ/ML Oral Solution [Golytely] POLYETHYLEN Yes 240 ml, Mem oria E GLYCOL 7-30 PO, l 3350 60 21:46: Q10Min, # Vivienne nn MG/ML / 00 1 ea, 0 Potassium Refill(s), Chloride Pharmacy: 0.01 MEQ/ML [facility] Sodium [facility] #6704 Bicarbonate 0.02 MEQ/ML / Sodium Chloride 0.025 MEQ/ML / sodium sulfate 0.04 MEQ/ML Oral Solution [Golytely] POLYETHYLEN Yes 240 ml, Mem oria E GLYCOL 7-30 PO, l 3350 60 21:46: Q10Min, # Vivienne nn MG/ML / 00 1 ea, 0 Potassium Refill(s), Chloride Pharmacy: 0.01 MEQ/ML [facility] Sodium [facility] #6704 Bicarbonate 0.02 MEQ/ML / Sodium Chloride 0.025 MEQ/ML / sodium sulfate 0.04 MEQ/ML Oral Solution [Golytely] POLYETHYLEN Yes 240 ml, Mem oria E GLYCOL 7-30 PO, l 3350 60 21:46: Q10Min, # Vivienne nn MG/ML / 00 1 ea, 0 Potassium Refill(s), Chloride Pharmacy: 0.01 MEQ/ML [facility] Sodium cy #6704 Bicarbonate 0.02 MEQ/ML / Sodium Chloride 0.025 MEQ/ML / sodium sulfate 0.04 MEQ/ML Oral Solution [Golytely] POLYETHYLEN Yes 240 ml, Mem oria E GLYCOL 7-30 PO, l 3350 60 21:46: Q10Min, # Vivienne nn MG/ML / 00 1 ea, 0 Potassium Refill(s), Chloride Pharmacy: 0.01 MEQ/ML [facility] Sodium [facility] #6704 Bicarbonate 0.02 MEQ/ML / Sodium Chloride 0.025 MEQ/ML / sodium sulfate 0.04 MEQ/ML Oral Solution [Golytely] POLYETHYLEN Yes 240 ml, Mem oria E GLYCOL 7-30 PO, l 3350 60 21:46: Q10Min, # Vivienne nn MG/ML / 00 1 ea, 0 Potassium Refill(s), Chloride Pharmacy: 0.01 MEQ/ML [facility] Sodium cy #6704 Bicarbonate 0.02 MEQ/ML / Sodium Chloride 0.025 MEQ/ML / sodium sulfate 0.04 MEQ/ML Oral Solution [Golytely] POLYETHYLEN Yes 240 ml, Mem oria E GLYCOL 7-30 PO, l 3350 60 21:46: Q10Min, # Vivienne nn MG/ML / 00 1 ea, 0 Potassium Refill(s), Chloride Pharmacy: 0.01 MEQ/ML [facility] Sodium [facility] #6704 Bicarbonate 0.02 MEQ/ML / Sodium Chloride 0.025 MEQ/ML / sodium sulfate 0.04 MEQ/ML Oral Solution [Golytely] simvastatin Yes 0 Memori a 40 mg oral 7-30 Refill(s) l tablet 21:33: [place] 00 ramipril 5 Yes 5 mg = 1 Mem oria mg oral 7-30 cap, PO, l capsule 21:33: Daily, # Nik n 00 30 cap, 0 Refill(s) Hydrochloro Yes 0 Memori a thiazide 7-30 Refill(s) l 21:33: [place] 00 Folic Acid Yes 1 mg = 1 Mem oria 1 MG Oral 7-30 tab, PO, l Tablet 21:33: Daily, # [place] 00 30 tab, 0 Refill(s) bromfenac Yes 0 Memoria 7-30 Refill(s) l 21:33: [place] 00 methotrexat Yes 0 Memori a e 2.5 mg 7-30 Refill(s) l oral tablet 21:33: Nik n 00 loteprednol Yes 0 Memori a etabonate 5 7-30 Refill(s) l MG/ML 21:33: [place] Ophthalmic 00 Suspension [Lotemax] meloxicam Yes 7.5 mg = 1 Me moria 7.5 mg oral 7-30 tab, PO, l tablet 21:33: Daily, # [place] 00 30 tab, 0 Refill(s) simvastatin Yes 0 Memori a 40 mg oral 7-30 Refill(s) l tablet 21:33: [place] 00 ramipril 5 Yes 5 mg = 1 Mem oria mg oral 7-30 cap, PO, l capsule 21:33: Daily, # Nik n 00 30 cap, 0 Refill(s) Hydrochloro Yes 0 Memori a thiazide 7-30 Refill(s) l 21:33: [place] 00 Folic Acid Yes 1 mg = 1 Mem oria 1 MG Oral 7-30 tab, PO, l Tablet 21:33: Daily, # [place] 00 30 tab, 0 Refill(s) bromfenac Yes 0 Memoria 7-30 Refill(s) l 21:33: [place] methotrexat Yes 0 Memori a e 2.5 mg 7-30 Refill(s) l oral tablet 21:33: Nik n 00 loteprednol Yes 0 Memori a etabonate 5 7-30 Refill(s) l MG/ML 21:33: [place] Ophthalmic 00 Suspension [Lotemax] meloxicam Yes 7.5 mg = 1 Me mor[place] 7.5 mg oral 7-30 tab, PO, l tablet 21:33: Daily, # [place] 00 30 tab, 0 Refill(s) simvastatin Yes 0 Memori a 40 mg oral 7-30 Refill(s) l tablet 21:33: [place] 00 ramipril 5 Yes 5 mg = 1 Mem oria mg oral 7-30 cap, PO, l capsule 21:33: Daily, # Nik n 00 30 cap, 0 Refill(s) Hydrochloro Yes 0 Memori a thiazide 7-30 Refill(s) l 21:33: [place] 00 Folic Acid Yes 1 mg = 1 Mem oria 1 MG Oral 7-30 tab, PO, l Tablet 21:33: Daily, # [place] 00 30 tab, 0 Refill(s) bromfenac Yes 0 Memoria 7-30 Refill(s) l 21:33: [place] methotrexat Yes 0 Memori a e 2.5 mg 7-30 Refill(s) l oral tablet 21:33: Nik n loteprednol Yes 0 Memori a etabonate 5 7-30 Refill(s) l MG/ML 21:33: [place] Ophthalmic 00 Suspension [Lotemax] meloxicam Yes 7.5 mg = 1 Me moria 7.5 mg oral 7-30 tab, PO, l tablet 21:33: Daily, # [place] 00 30 tab, 0 Refill(s) simvastatin Yes 0 Memori a 40 mg oral 7-30 Refill(s) l tablet 21:33: [place] 00 ramipril 5 Yes 5 mg = 1 Mem oria mg oral 7-30 cap, PO, l capsule 21:33: Daily, # Nik n 00 30 cap, 0 Refill(s) Hydrochloro Yes 0 Memori a thiazide 7-30 Refill(s) l 21:33: [place] Folic Acid Yes 1 mg = 1 Mem oria 1 MG Oral 7-30 tab, PO, l Tablet 21:33: Daily, # [place] 00 30 tab, 0 Refill(s) bromfenac Yes 0 Memoria 7-30 Refill(s) l 21:33: [place] methotrexat Yes 0 Memori a e 2.5 mg 7-30 Refill(s) l oral tablet 21:33: Nik n loteprednol Yes 0 Memori a etabonate 5 7-30 Refill(s) l MG/ML 21:33: [place] Ophthalmic Suspension [Lotemax] meloxicam Yes 7.5 mg = 1 Me moria 7.5 mg oral 7-30 tab, PO, l tablet 21:33: Daily, # [place] 00 30 tab, 0 Refill(s) simvastatin Yes 0 Memori a 40 mg oral 7-30 Refill(s) l tablet 21:33: [place] ramipril 5 Yes 5 mg = 1 Mem oria mg oral 7-30 cap, PO, l capsule 21:33: Daily, # Nik n 00 30 cap, 0 Refill(s) Hydrochloro Yes 0 Memori a thiazide 7-30 Refill(s) l 21:33: [place] Folic Acid Yes 1 mg = 1 Mem oria 1 MG Oral 7-30 tab, PO, l Tablet 21:33: Daily, # [place] 00 30 tab, 0 Refill(s) bromfenac Yes 0 Memoria 7-30 Refill(s) l 21:33: [place] 00 methotrexat Yes 0 Memori a e 2.5 mg 7-30 Refill(s) l oral tablet 21:33: Nik n 00 loteprednol Yes 0 Memori a etabonate 5 7-30 Refill(s) l MG/ML 21:33: [place] Ophthalmic 00 Suspension [Lotemax] meloxicam Yes 7.5 mg = 1 Me moria 7.5 mg oral 7-30 tab, PO, l tablet 21:33: Daily, # [place] 00 30 tab, 0 Refill(s) simvastatin Yes 0 Memori a 40 mg oral 7-30 Refill(s) l tablet 21:33: [place] 00 ramipril 5 Yes 5 mg = 1 Mem oria mg oral 7-30 cap, PO, l capsule 21:33: Daily, # Nik n 00 30 cap, 0 Refill(s) Hydrochloro Yes 0 Memori a thiazide 7-30 Refill(s) l 21:33: [place] Folic Acid Yes 1 mg = 1 Mem oria 1 MG Oral 7-30 tab, PO, l Tablet 21:33: Daily, # [place] 00 30 tab, 0 Refill(s) bromfenac Yes 0 Memoria 7-30 Refill(s) l 21:33: [place] 00 methotrexat Yes 0 Memori a e 2.5 mg 7-30 Refill(s) l oral tablet 21:33: Nik n 00 loteprednol Yes 0 Memori a etabonate 5 7-30 Refill(s) l MG/ML 21:33: [place] Ophthalmic 00 Suspension [Lotemax] meloxicam Yes 7.5 mg = 1 Me moria 7.5 mg oral 7-30 tab, PO, l tablet 21:33: Daily, # [place] 00 30 tab, 0 Refill(s) simvastatin Yes 0 Memori a 40 mg oral 7-30 Refill(s) l tablet 21:33: [place] 00 ramipril 5 Yes 5 mg = 1 Mem oria mg oral 7-30 cap, PO, l capsule 21:33: Daily, # Nik n 00 30 cap, 0 Refill(s) Hydrochloro Yes 0 Memori a thiazide 7-30 Refill(s) l 21:33: [place] 00 Folic Acid Yes 1 mg = 1 Mem oria 1 MG Oral 7-30 tab, PO, l Tablet 21:33: Daily, # [place] 00 30 tab, 0 Refill(s) bromfenac Yes 0 Memoria 7-30 Refill(s) l 21:33: [place] methotrexat Yes 0 Memori a e 2.5 mg 7-30 Refill(s) l oral tablet 21:33: Nik n 00 loteprednol Yes 0 Memori a etabonate 5 7-30 Refill(s) l MG/ML 21:33: [place] [facility] 00 Suspension [Lotemax] meloxicam Yes 7.5 mg = 1 Me moria 7.5 mg oral 7-30 tab, PO, l tablet 21:33: Daily, # [place] 00 30 tab, 0 Refill(s) simvastatin Yes 0 Memori a 40 mg oral 7-30 Refill(s) l tablet 21:33: [place] 00 ramipril 5 Yes 5 mg = 1 Mem oria mg oral 7-30 cap, PO, l capsule 21:33: Daily, # Nik n 00 30 cap, 0 Refill(s) Hydrochloro Yes 0 Memori a thiazide 7-30 Refill(s) l 21:33: [place] 00 Folic Acid Yes 1 mg = 1 Mem oria 1 MG Oral 7-30 tab, PO, l Tablet 21:33: Daily, # [place] 00 30 tab, 0 Refill(s) bromfenac Yes 0 Memoria 7-30 Refill(s) l 21:33: [place] methotrexat Yes 0 Memori a e 2.5 mg 7-30 Refill(s) l oral tablet 21:33: Nik n loteprednol Yes 0 Memori a etabonate 5 7-30 Refill(s) l MG/ML 21:33: [place] [facility] 00 Suspension [Lotemax] meloxicam Yes 7.5 mg = 1 Me moria 7.5 mg oral 7-30 tab, PO, l tablet 21:33: Daily, # [place] 00 30 tab, 0 Refill(s) simvastatin Yes 0 Memori a 40 mg oral 7-30 Refill(s) l tablet 21:33: [place] 00 ramipril 5 Yes 5 mg = 1 Mem oria mg oral 7-30 cap, PO, l capsule 21:33: Daily, # Nik n 00 30 cap, 0 Refill(s) Hydrochloro Yes 0 Memori a thiazide 7-30 Refill(s) l 21:33: [place] Folic Acid Yes 1 mg = 1 Mem oria 1 MG Oral 7-30 tab, PO, l Tablet 21:33: Daily, # [place] 00 30 tab, 0 Refill(s) bromfenac Yes 0 Memoria 7-30 Refill(s) l 21:33: [place] methotrexat Yes 0 Memori a e 2.5 mg 7-30 Refill(s) l oral tablet 21:33: Nik n loteprednol Yes 0 Memori a etabonate 5 7-30 Refill(s) l MG/ML 21:33: [place] Ophthalmic Suspension [Lotemax] meloxicam Yes 7.5 mg = 1 Me moria 7.5 mg oral 7-30 tab, PO, l tablet 21:33: Daily, # [place] 00 30 tab, 0 Refill(s) simvastatin Yes 0 Memori a 40 mg oral 7-30 Refill(s) l tablet 21:33: [place] ramipril 5 Yes 5 mg = 1 Mem oria mg oral 7-30 cap, PO, l capsule 21:33: Daily, # Nik n 00 30 cap, 0 Refill(s) Hydrochloro Yes 0 Memori a thiazide 7-30 Refill(s) l 21:33: [place] Folic Acid Yes 1 mg = 1 Mem oria 1 MG Oral 7-30 tab, PO, l Tablet 21:33: Daily, # [place] 00 30 tab, 0 Refill(s) bromfenac Yes 0 Memoria 7-30 Refill(s) l 21:33: [place] 00 methotrexat Yes 0 Memori a e 2.5 mg 7-30 Refill(s) l oral tablet 21:33: Nki n 00 loteprednol Yes 0 Memori a etabonate 5 7-30 Refill(s) l MG/ML 21:33: [place] Op[facility] 00 Suspension [Lotemax] meloxicam Yes 7.5 mg = 1 Me moria 7.5 mg oral 7-30 tab, PO, l tablet 21:33: Daily, # [place] 00 30 tab, 0 Refill(s) simvastatin Yes 0 Memori a 40 mg oral 7-30 Refill(s) l tablet 21:33: [place] 00 ramipril 5 Yes 5 mg = 1 Mem oria mg oral 7-30 cap, PO, l capsule 21:33: Daily, # Nik n 00 30 cap, 0 Refill(s) Hydrochloro Yes 0 Memori a thiazide 7-30 Refill(s) l 21:33: [place] Folic Acid Yes 1 mg = 1 Mem oria 1 MG Oral 7-30 tab, PO, l Tablet 21:33: Daily, # [place] 00 30 tab, 0 Refill(s) bromfenac Yes 0 Memoria 7-30 Refill(s) l 21:33: [place] 00 methotrexat Yes 0 Memori a e 2.5 mg 7-30 Refill(s) l oral tablet 21:33: Nik n 00 loteprednol Yes 0 Memori a etabonate 5 7-30 Refill(s) l MG/ML 21:33: [place] Ophthalmic 00 Suspension [Lotemax] meloxicam Yes 7.5 mg = 1 Me moria 7.5 mg oral 7-30 tab, PO, l tablet 21:33: Daily, # [place] 00 30 tab, 0 Refill(s) simvastatin Yes 0 Memori a 40 mg oral 7-30 Refill(s) l tablet 21:33: [place] 00 ramipril 5 Yes 5 mg = 1 Mem oria mg oral 7-30 cap, PO, l capsule 21:33: Daily, # Nik n 00 30 cap, 0 Refill(s) Hydrochloro Yes 0 Memori a thiazide 7-30 Refill(s) l 21:33: [place] 00 Folic Acid Yes 1 mg = 1 Mem oria 1 MG Oral 7-30 tab, PO, l Tablet 21:33: Daily, # [place] 00 30 tab, 0 Refill(s) bromfenac 2013- Yes 0 Memoria 7-30 Refill(s) l 21:33: [place] 00 methotrexat 2013- Yes 0 Memori a e 2.5 mg 7-30 Refill(s) l oral tablet 21:33: Nik n 00 loteprednol 2013- Yes 0 Memori a etabonate 5 7-30 Refill(s) l MG/ML 21:33: [place] Op[facility] 00 Suspension [Lotemax] meloxicam Yes 7.5 mg = 1 Me moria 7.5 mg oral 7-30 tab, PO, l tablet 21:33: Daily, # [place] 00 30 tab, 0 Refill(s) Immunizations Ordered Filled Date Status Comments Source Immunization Name Immunization Name FLUZONE HIGH-DOSE 2022-07-[address] [facility] 00:00:00 [facility] COVID19 2021-10-03 Completed [facility] MRNA VACCINATION 00:00:00 [facility] FLUZONE HIGH-DOSE 2021-07-[address] PF 00:00:00 [facility] FLUZONE HIGH-DOSE 2021-06-[address] PF 00:00:00 [facility] FLUZONE HIGH-DOSE 2021-06-[address] [facility] VACCINATION 00:00:00 [facility] COVID-19 2020-12-26 Completed [facility] MRNA VACCINATION 00:00:00 [facility] COVID-19 2020-11-28 Completed [facility] MRNA VACCINATION 00:00:00 [facility] COVID-19 2020-11-28 Completed [facility] MRNA VACCINATION 00:00:00 [facility] FLUZONE HIGH-DOSE 2020-06-[address] PF 00:00:00 [facility] FLUZONE HIGH-DOSE 2020-06-[address] PF 00:00:00 [facility] FLUZONE HIGH-DOSE 2019-06-[address] [facility] 00:00:00 Hospital Zoster Vaccine 2019-03-26 Completed [facility] Recombinant 00:00:00 Hospital Zoster Vaccine 2019-03-26 Completed [facility] Recombinant 00:00:00 [facility] Zoster Vaccine 2018-10-15 Completed [facility] Recombinant 00:00:00 [facility] Zoster Vaccine 2018-10-15 Completed [facility] Recombinant 00:00:00 Hospital FLUZONE HIGH-DOSE 2018-06-[address] PF 00:00:00 [facility] Pneumococcal 2017-02-08 Completed [facility] Conjugate 13-Valent 00:00:00 [facility] Fluzone High-Dose Unknown Completed [facility] SUSP Pneumococcal Unknown Completed [facility] polysaccharide vaccine, 23 valent Shingrix 50 MCG Unknown Completed [facility] Intramuscular Suspension Reconstituted Shingrix 50 MCG Unknown Completed [facility] Intramuscular Suspension Reconstituted Fluzone High-Dose Unknown Completed Approx [facility] 0.5 ML [id number] Intramuscular Suspension Prefilled Syringe Vital Signs Vital Name Observation Time Observation Value Comments Source Systolic blood 2023-02-12 135 mm[Hg] [facility] pressure 16:07:00 [facility] Diastolic blood 2023-02-12 70 mm[Hg] [facility] pressure 16:07:00 Hospital Heart rate 2023-02-12 58 /min Bahai 16:07:00 [facility] Body temperature 2023-02-12 36.5 Hortensia [facility]ai 16:07:00 Hospital Body height 2023-02-12 162.6 cm [facility] 16:07:00 Hospital Body weight 2023-02-12 56.427 kg [facility]ai 16:07:00 [facility] BMI 2023-02-12 21.35 kg/m2 [facility] 16:07:00 Hospital Oxygen saturation 2023-02-12 95 /min Bahai in Arterial blood 16:07:00 Hospital by Pulse oximetry Respiratory rate 2022-12-12 18 /min Bahai 15:42:00 [facility] Systolic blood 2022-02-21 137 mm[Hg] [facility] pressure 14:57:00 Hospital Diastolic blood 2022-02-21 63 mm[Hg] [facility] pressure 14:57:00 Hospital Heart rate 2022-02-21 61 /min [facility]ai 14:57:00 Hospital Respiratory rate 2022-02-21 18 /min Bahai 14:57:00 [facility] Body height 2022-02-21 160 cm [facility] 14:57:00 Hospital Body weight 2022-02-21 59.33 kg [facility] 14:57:00 Hospital BMI 2022-02-21 23.17 kg/m2 [facility] 14:57:00 Hospital Oxygen saturation 2022-02-21 100 /min Bahai in Arterial blood 14:57:00 [facility] by Pulse oximetry Body temperature 2022-01-10 36.44 Hortensia [facility]ai 15:46:46 Hospital Systolic blood 2020-09-20 171 mm[Hg] [facility] 10:39:00 Position: Sitting Diastolic blood 2020-09-20 78 mm[Hg] [facility] 10:39:[facility] Position: Sitting Systolic blood 2020-09-20 188 mm[Hg] [facility] RUE[facility] 10:38:00 Position: Sitting Diastolic blood 2020-09-20 77 mm[Hg] [facility] RUE[facility] pressure 10:38:00 Position: Sitting Body height 2020-09-20 62 [in_us] [facility] 10:38:00 Weight 2020-09-20 133 [lb_av] [facility] 10:38:00 Body mass index 2020-09-20 24.33 kg/m2 [facility] (BMI) [Ratio] 10:38:00 Body temperature 2020-09-20 97.5 [degF] Method: Oral [facility] 10:38:00 Heart Rate 2020-09-20 68 /min Location: R [facility] 10:38:00 Brachial Artery; Quality: Normal O2 SAT 2020-09-20 97 % Source: [facility] 10:38:00 BP Systolic 2019-09-09 184 mm[Hg] Location: RUE; [facility] 11:56:00 Position: Sitting BP Diastolic 2019-09-09 81 mm[Hg] Location: RUE; [facility] 11:56:00 Position: Sitting Height 2019-09-09 62 [in_us] [facility] 11:56:00 Weight 2019-09-09 132 [lb_av] [facility] 11:56:00 Body Mass Index 2019-09-09 24.14 kg/m2 [facility] Calculated 11:56:00 Heart Rate 2019-09-09 63 /min Location: R [facility] 11:56:00 Brachial Artery; Quality: Regular O2 SAT 2019-09-09 63 % Source: RA [facility] 11:56:00 BP Systolic 2018-07-19 157 mm[Hg] Location: RUE; [facility] 10:52:00 Position: Sitting BP Diastolic 2018-07-19 78 mm[Hg] Location: RUE; [facility] 10:52:00 Position: Sitting Height 2018-07-19 62 [in_us] [facility] 10:52:00 Weight 2018-07-19 137 [lb_av] [facility] 10:52:00 Body Mass Index 2018-07-19 25.06 kg/m2 [facility] Calculated 10:52:00 Heart Rate 2018-07-19 68 /min Location: R [facility] 10:52:00 Brachial Artery; Quality: Regular Diastolic (mm Hg) 2014-04-29 [facility] ermann 21:08:00 Heart Rate 2014-04-29 [facility] n 21:08:00 Systolic (mm Hg) 2014-04-29 [facility] rmann 21:08:00 [facility] 2014[facility]04-29 [facility] 21[facility]:00 Height 2014-04-29 165.1 cm [facility] n 21:08:00 BMI Calculated 2014-04-[address] [facility] 21:08:00 Procedures Procedure Date / Time Performed Performing Clinician [facility] e LIPID PANEL 2023-02-12 17:07:00 [facility] TSH WITH REFLEX TO FREE 2023-02-12 17:07:00 [facility] T4 HEMOGLOBIN A1C 2023-02-12 17:07:00 [facility] HEPATITIS B SURFACE AB, 2023-02-12 17:07:00 [facility] QUANTITATIVE BASIC METABOLIC PANEL 2022-12-12 15:49:00 [facility] IONIZED CALCIUM 2022-12-12 15:49:00 [facility] ESTIMATED GFR 2022-12-12 15:49:00 [facility] BONE DENSITY PERIPHERAL 2022-08-18 17:50:00 [facility] BONE DENSITY 2022-08-18 17:49:00 [facility] HEPATIC FUNCTION PANEL 2022-08-15 16:47:00 [facility] VITAMIN D 25 HYDROXY 2022-08-15 16:47:00 [facility] LEVEL HEMOGLOBIN A1C 2022-08-15 16:47:00 [facility] BASIC METABOLIC PANEL 2022-06-27 15:27:00 Power Zaman [facility] IONIZED CALCIUM 2022-06-27 15:27:00 Power Zaman [facility] ESTIMATED GFR 2022-06-27 15:27:00 Lola [facility] AUTOMATED VISUAL FIELD, 2022-05-15 18:07:22 Rg Isbell [facility] EXTENDED - OU - BOTH EYES OCT, RETINA - OU - BOTH 2022-05-15 18:07:13 Rg Isbell [facility] EYES LIPID PANEL 2022-03-01 11:21:00 [facility] TSH REFLEX TO T4F 2022-03-01 11:21:00 [facility] VITAMIN D 25 HYDROXY 2022-03-01 11:21:00 [facility] LEVEL HEMOGLOBIN A1C 2022-03-01 11:21:00 [facility] HEPATITIS C ANTIBODY 2022-03-01 10:22:00 [facility] IONIZED CALCIUM 2021-12-27 16:52:00 Lola [facility] AUTOMATED VISUAL FIELD, 2021-08-09 16:58:39 Rg Isbell [facility] EXTENDED - OU - BOTH EYES OCT, OPTIC NERVE - OU - 2021-08-09 16:58:36 Rg Isbell [facility] BOTH EYES IONIZED CALCIUM 2021-07-12 15:59:00 Power Zaman [facility] [QL] BASIC METABOLIC 2020-09-20 00:00:00 [facility] PANEL W/EGFR [QL] LIPID PANEL 2020-09-20 00:00:00 [facility] [QL] HEMOGLOBIN A1c 2020-09-20 00:00:00 [facility] [QL] URINALYSIS, 2020-09-20 00:00:00 [facility] COMPLETE [QLH] HEMOGLOBIN A1c 2019-09-09 00:00:00 [facility] [QLH] GLUCOSE 2019-09-09 00:00:00 [facility] [QLH] LIPID PANEL 2019-09-09 00:00:00 [facility] [QL[facility]] CMP W/EGFR 2018-07-19 00:00:00 [facility] [QL[facility]] CBC (INCLUDES 2018-07-19 00:00:00 [facility] DIFF/PLT) [QLH] LIPID PANEL 2018-07-19 00:00[facility] [QL[facility]] T3 UPTAKE 2018-07-19 00:00:00 [facility] [QLH] T4, TOTAL 2018-07-19 00:00:00 [facility] (THYROXINE) [QLH] TSH, 3RD 2018-07-19 00:00:00 [facility] GENERATION [QLH] URINALYSIS, 2018-07-19 00:00:00 [facility] COMPLETE [U] XRAY CHEST 2 VWS 2018-07-19 00:00:00 [facility] [id number] Catar[facility] Plan of Care Planned Activity Planned Date Details Comments Source Future Scheduled 2023-03-22 INFLUENZA VACCINE [facility] Test 06:17:02 [code = INFLUENZA Hospital VACCINE] Future Scheduled 2023-03-22 COVID-19 VACCINE Postponed from [facility] 06:17:02 (4 - Moderna 11/28/2021 Hospital series) [code = (Patient Refused) COVID-19 VACCINE (4 - Moderna series)] Future Scheduled 2022-05-31 HEPATITIS B [facility] Test 03:43:14 VACCINES (1 of 3 Hospital - 3-dose series) [code = HEPATITIS B VACCINES (1 of 3 - 3-dose series)] Future Scheduled 2022-05-31 COVID-[address] Test 03:43:14 (4 - Booster for Hospital Moderna series) [code = COVID-19 VACCINE (4 - Booster for Moderna series)] Future Scheduled 2022-05-31 INFLUENZA VACCINE Method [facility] Test 03:43:14 [code = INFLUENZA Hospital VACCINE] Encounters Start End Encounter Admission Attending Care Care Encounter Source Date/Time Date/Time Type Type Clinicians Facility Department ID 2023-02-16 2023-02-16 Yesenia Berrios, 1.2.840.1 [id number] Methodi 13:30:00 14:40:40 Visit Sonal 60536.1.[address] [place] 3.430.2.7 Hospit a .3.343600 l .8 2023-02-16 2023-02-16 Outpatient VIKTORIYA, [facility] [id number] [place] 00:00:00 00:00:[address] 2023-02-16 2023-02-16 Telephone Yordan, 1.2.840.1 [id number] Methodi 00:00:00 00:00:[address] 3.430.2.7 Hospit a .3.794067 l .8 2023-02-14 2023-02-14 Telephone [place], 1.2.840.1 [id number] [id number] Methodi 00:00:00 00:00:00 [address] 3.430.2.7 Hospit a .3.390871 l .8 2023-02-12 2023-02-12 Lab Michell, 1.2.840.1 [id number] Methodi 12:10:00 12:15:[address] 3.430.2.7 Hospit a .3.057507 l .8 2023-02-12 2023-02-12 Office Michell, 1.2.840.1 [id number] Methodi 11:00:00 12:01:31 Visit Wondiful 82725.1.[address] 3.430.2.7 Hospit a .3.471386 l .8 2023-02-12 2023-02-12 Outpatient MICHELL, [facility] [id number] [place] 00:00:00 00:00:00 [place] [address] 2023-02-12 2023-02-12 Outpatient MICHELL, [facility] [id number] [place] 00:00:00 00:00:00 W[place] [address] 2022-12-12 2022-12-12 Nurse Only Lola, 1.2.840.1 [id number] Methodi 10:30:00 11:00:00 Power Go [address]1.[address] 3.430.2.7 Hospit a .3.562832 l .8 2022-12-12 2022-12-12 Outpatient LOLA, [facility] [id number] [place] 00:00:00 00:00:00 POWER [address] 2022-12-12 2022-12-12 Travel 1.2.840.1 1.2.435.252 [id number] Methodi 00:00:00 00:00:[address] 3.430.2.7 0.2.7.3.698 Ho spita .3.016566 084.8 l .8 2022-11-13 2022-11-13 Office [place], 1.2.840.1 [id number] Methodi 11:45:00 13:17:51 Visit Rg Zepeda50.1.[address] 3.430.2.7 Hospit a .3.678162 l .8 2022-11-13 2022-11-13 Outpatient MICCOSUKEE, [facility] [id number] [place] 00:00:00 00:00:[address] 2022-11-13 2022-11-13 Outpatient [facility] [id number] [place] 00:00:00 00:00:[address] 2022-11-13 2022-11-13 Outpatient [facility] [id number] [place] 00:00:00 00:00:[address] 2022-11-13 2022-11-13 Travel 1.2.840.1 1.2.694.306 [id number] Methodi 00:00:00 00:00:[address] 3.430.2.7 0.2.7.3.698 Ho spita .3.271322 084.8 l .8 2022-08-28 2022-08-28 Telephone [place], 1.2.840.1 [id number] Methodi 00:00:00 00:00:[address] 3.430.2.7 Hospit a .3.593672 l .8 2022-08-18 2022-08-18 [facility] Lola, 1.2.840.1 [id number] Methodi 11:05:57 23:59:00 Encounter Power Go 77860.1.[address] 3.430.2.7 Hospit a .3.886652 l .8 2022-08-18 2022-08-18 [facility] Lola, 1.2.840.1 [id number] Methodi 11:00:00 11:04:00 Encounter Power Go 98657.1.[address] 3.430.2.7 Hospit a .3.868008 l .8 2022-08-18 2022-08-18 Outpatient LOLA, [facility] [id number] [place] 00:00:00 00:00:00 POWER [address] 2022-08-18 2022-08-18 Outpatient LOLA, [facility] [id number] [place] 00:00:00 00:00:00 POWER [address] 2022-08-18 2022-08-18 Travel 1.2.840.1 1.2.399.778 [id number] Methodi 00:00:00 00:00:[address] 3.430.2.7 0.2.7.3.698 Ho spita .3.163614 084.8 l .8 2022-08-16 2022-08-16 Travel 1.2.840.1 1.2.965.896 [id number] Methodi 00:00:00 00:00:[address] 3.430.2.7 0.2.7.3.698 Ho spita .3.142680 084.8 l .8 2022-08-15 2022-08-15 Lab Michell, 1.2.840.1 [id number] Methodi 10:50:00 10:55:[address] 3.430.2.7 Hospit a .3.747494 l .8 2022-08-15 2022-08-15 Office Isabella, 1.2.840.1 [id number] Methodi 10:15:00 10:44:31 Visit Wondiful 50512.1.[address] 3.430.2.7 Hospit a .3.579478 l .8 2022-08-15 2022-08-15 Outpatient MICHELL, [facility] [id number] [place] 00:00:00 00:00:00 WONDIFUL [address] 2022-08-15 2022-08-15 Outpatient MICHELL, [facility] [id number] [place] 00:00:00 00:00:[address] WONDIFUL [address] 2022-07-31 2022-07-31 [facility] [place], 1.2.840.1 [id number] Methodi 13:00:00 13:15:00 ne Rg A. 52389.1.[address] 3.430.2.7 Hospit a .3.535335 l .8 2022-07-31 2022-07-31 Travel 1.2.840.1 1.2.356.319 [id number] Methodi 00:00:00 00:00:[address] 3.430.2.7 0.2.7.3.698 Ho spita .3.659389 084.8 l .8 2022-07-31 2022-07-31 Telephone [place], 1.2.840.1 [id number] [id number] Methodi 00:00:00 00:00:[address]14[address] 3.430.2.7 Hospit a .3.887363 l .8 2022-07-20 2022-07-20 Transcribe Lola, 1.2.840.1 [id number] 2 [id number] Methodi 00:00:00 00:00:00 Elvia Go 43601.1.[address] 3.430.2.7 Hospit a .3.079770 l .8 2022-06-29 2022-06-29 Orders Jose A Flores 1.2.840.1 [id number] 21 [id number] Methodi 00:00:00 00:00:[address] 3.430.2.7 Hospit a .3.222132 l .8 2022-06-27 2022-06-27 Nurse Only Dilma Zaman.2.840.1 [id number] 2 [id number] Methodi 10:30:00 11:00:00 Power [place] [address]308.1.[address] 3.430.2.7 Hospit a .3.225789 l .8 2022-06-27 2022-06-27 Outpatient [facility] 16436 12676 [place] 00:00:00 00:00:[address] POWER [address] 2022-06-27 2022-06-27 Travel 1.2.840.1 1.2.842.930 6356 293320 Methodi 00:00:00 00:00:[address] 3.430.2.7 0.2.7.3.698 Ho spita .3.010324 084.8 l .8 2022-06-13 2022-06-13 [id number] [facility] 08:00:00 08:00:00 Maurice Rodriguez [facility] [place], operated [facility] 2022-05-15 2022-05-15 Clinical [place], 1.2.840.1 [id number] Methodi 13:30:00 13:30:00 Support Rg Arcos 00306.1.[address] 3.430.2.7 Hospit a .3.140937 l .8 2022-05-15 2022-05-15 Clinical [place], 1.2.840.1 [id number] Methodi 13:30:00 13:30:00 Support Rg Arcos 02141.1.[address] 3.430.2.7 Hospit a .3.182976 l .8 2022-05-152022-05-15 Clinical [place], 1.2.840.1 [id number] 80925 19973 Methodi 13:15:00 13:19:18 Support Rg Arcos [address]687.1.[address] 3.430.2.7 Hospit a .3.455968 l .8 2022-05-15 2022-05-15 Clinical [place], 1.2.840.1 [id number] 53078 Methodi 13:15:00 13:19:18 Support Rg Arcos 41799.1.[address] 3.430.2.7 Hospit a .3.466756 l .8 2022-05-15 2022-05-15 Travel 1.2.840.1 1.2.858.791 3208 170059 Methodi 00:00:00 00:00:[address] 3.430.2.7 0.2.7.3.698 Ho spita .3.180032 084.8 l .8 2022-05-15 2022-05-15 Travel 1.2.840.1 1.2.810.008 2294 969553 Methodi 00:00:00 00:00:[address] 3.430.2.7 0.2.7.3.698 Ho spita .3.927290 084.8 l .8 2022-05-01 2022-05-01 Office [place], 1.2.840.1 [id number] 751087 2922 Methodi 10:30:00 11:39:09 Visit Rg Arcos 61988.1.[address] 3.430.2.7 Hospit a .3.697337 l .8 2022-05-01 2022-05-01 Office [place], 1.2.840.1 [id number] 527498 0196 Methodi 10:30:00 11:39:09 Visit Rg Arcos 01234.1.[address] 3.430.2.7 Hospit a .3.279584 l .8 2022-05-01 2022-05-01 Travel 1.2.840.1 1.2.053.504 6350 870375 Methodi 00:00:00 00:00:[address] 3.430.2.7 0.2.7.3.698 Ho spita .3.287571 084.8 l .8 2022-05-01 2022-05-01 Travel 1.2.840.1 1.2.013.923 4078 495189 Methodi 00:00:00 00:00:[address] 3.430.2.7 0.2.7.3.698 Ho spita .3.644154 084.8 l .8 2022-04-05 2022-04-05 Refill Isidro, 1.2.840.1 [id number] Methodi 00:00:00 00:00:[address] 3.430.2.7 Hospit a .3.085200 l .8 2022-04-05 2022-04-05 Refill Isidro, 1.2.840.1 [id number] 2297 Methodi 00:00:00 00:00:[address] 3.430.2.7 Hospit a .3.717235 l .8 2022-04-04 2022-04-04 Refill [place], 1.2.840.1 [id number] 5710 Methodi 00:00:00 00:00:[address] R[address]157.1.[address] 3.430.2.7 Hospit a .3.733575 l .8 2022-04-04 2022-04-04 Refill [place], 1.2.840.1 [id number] 2654 Methodi 00:00:00 00:00:[address] 3.430.2.7 Hospit a .3.989026 l .8 2022-03-24 2022-03-24 Refill Isidro, 1.2.840.1 [id number] 6411 Methodi 00:00:00 00:00:[address] 3.430.2.7 Hospit a .3.364398 l .8 2022-03-23 2022-03-23 Telephone [place], 1.2.840.1 [id number] 2100 [id number] Methodi 00:00:00 00:00:[address] 3.430.2.7 Hospit a .3.511161 l .8 2022-03-06 2022-03-06 Telephone Isabella, 1.2.840.1 [id number] 400 [id number] Methodi 00:00:00 00:00:[address] 3.430.2.7 Hospit a .3.478507 l .8 2022-03-06 2022-03-06 Orders Michell, 1.2.840.1 [id number] Methodi 00:00:00 00:00:00 [address]185[address]1.[address] 3.430.2.7 Hospit a .3.864384 l .8 2022-03-03 2022-03-03 Telephone Michell, 1.2.840.1 [id number] 596 [id number] Methodi 00:00:00 00:00:[address] 3.430.2.7 Hospit a .3.189278 l .8 2022-03-03 2022-03-03 Telephone Leydi, 1.2.840.1 [id number] Methodi 00:00:00 00:00:[address] 3.430.2.7 Hospit a .3.213074 l .8 2022-03-01 2022-03-01 Orders Michell, 1.2.840.1 [id number] 65869 26808 Methodi 00:00:00 00:00:00 Only Wondiful 22732.1.[address] 3.430.2.7 Hospit a .3.667211 l .8 2022-03-01 2022-03-01 Orders Isabella, 1.2.840.1 [id number] 11973 Methodi 00:00:00 00:00:00 Only Wondiful 83899.1.[address] 3.430.2.7 Hospit a .3.216905 l .8 2022-02-28 2022-02-28 Lab Isabella, 1.2.840.1 [id number] 12642 Methodi 11:50:00 11:55:[address] 3.430.2.7 Hospit a .3.150424 l .8 2022-02-21 2022-02-21 Office Isabella, 1.2.840.1 [id number] 84096 Methodi 10:00:00 10:57:21 Visit Wondiful 78512.1.[address] 3.430.2.7 Hospit a .3.454082 l .8 2022-02-21 2022-02-21 Travel 1.2.840.1 1.2.422.112 7884 240033 Methodi 00:00:00 00:00:[address] 3.430.2.7 0.2.7.3.698 Ho spita .3.949550 084.8 l .8 2022-01-24 2022-01-24 Travel 1.2.840.1 1.2.146.756 6207 221119 Methodi 00:00:00 00:00:[address] 3.430.2.7 0.2.7.3.698 Ho spita .3.987910 084.8 l .8 2022-01-10 2022-01-10 Nurse Only Lola, 1.2.840.1 [id number] 2 [id number] Methodi 10:30:00 11:00:[address] 3.430.2.7 Hospit a .3.863402 l .8 2022-01-10 2022-01-10 Travel 1.2.840.1 1.2.934.632 7703 570400 Methodi 00:00:00 00:00:[address] 3.430.2.7 0.2.7.3.698 Ho spita .3.494038 084.8 l .8 2021-12-27 2021-12-27 Nurse Only Lola, 1.2.840.1 [id number] 2 [id number] Methodi 10:30:00 11:00:[address] 3.430.2.7 Hospit a .3.756936 l .8 2021-12-27 2021-12-27 Travel 1.2.840.1 1.2.888.827 1478 [id number] Methodi 00:00:00 00:00:[address] 3.430.2.7 0.2.7.3.698 Ho spita .3.871474 084.8 l .8 2021-12-19 2021-12-19 Office [place], 1.2.840.1 [id number] 1456 Methodi 10:30:00 12:05:49 Visit Rg Zepeda50.1.[address] 3.430.2.7 Hospit a .3.691609 l .8 2021-08-09 2021-08-09 Office [place], 1.2.840.1 [id number] 5482 Methodi 11:00:00 12:31:21 Visit Rg Arcos 77237.1.[address] 3.430.2.7 Hospit a .3.136299 l .8 2021-08-09 2021-08-09 Travel 1.2.840.1 1.2.566.538 8116 [id number] Methodi 00:00:00 00:00:[address] 3.430.2.7 0.2.7.3.698 Ho spita .3.919096 084.8 l .8 2021-07-12 2021-07-12 Nurse Only Lola, 1.2.840.1 [id number] 2 [id number] Methodi 10:30:00 11:00:[address] 3.430.2.7 Hospit a .3.790054 l .8 2021-07-12 2021-07-12 Travel 1.2.840.1 1.2.968.659 2257 119058 Methodi 00:00:00 00:00:[address] 3.430.2.7 0.2.7.3.698 Ho spita .3.422958 084.8 l .8 2021-06-09 2021-06-09 Outpatient MANNY Henderson, [facility] [id number] 4-20 [facility] 08:00:00 08:00:00 Maurice [id number] [facility] [place] 2021-06-09 2021-06-09 Outpatient MANNY Henderson, [facility] [id number] [facility] 08:00:00 08:00:00 Maurice 77 [facility] [place] 2021-05-16 2021-05-16 Outpatient LOLA, [facility] [id number] [place] 00:00:00 00:00:00 POWER 231 Method i 2021-05-16 2021-05-16 Outpatient LOLA, [facility] [id number] [place] 00:00:00 00:00:00 POWER 839 Method i 2021-05-16 2021-05-16 Outpatient JACQUELYN, [facility] [id number] [place] 00:00:00 00:00:00 CLEMENT 669 Method i 2021-05-16 2021-05-16 Outpatient JACQUELYN, [facility] [id number] [place] 00:00:00 00:00:00 CLEMENT 166 Method i 2021-02-01 2021-02-01 Outpatient MICCOSUKEE, [facility] [id number] [address] [place] [address] 00:00:00 00:00:00 RG 012 Method i 2021-01-25 2021-01-25 Outpatient LOLA, [facility] [id number] [place] 00:00:00 00:00:[address] POWER [address] 2020-09-20 2020-09-20 [facility] [id number] [place] 10:00:00 10:00:00 t; Ángel GEE M.D. [place] [facility] NORMAN, M.D. 2020-07-26 2020-07-26 Outpatient MICCOSUKEE, [facility] [id number] [place] 00:00:00 00:00:[address] 2020-07-06 2020-07-06 Outpatient LOLA, [facility] [id number] [place] 00:00:00 00:00:00 POWER [address] 2020-05-14 2020-05-14 Outpatient JACQUELYN, [facility] [id number] [place] 00:00:00 00:00:[address] CLEMENT [address] 2020-05-13 2020-05-13 Outpatient LOLA, [place] [address] [id number] [place] 00:00:00 00:00:[address] POWER [address] 2020-05-13 2020-05-13 Outpatient LOLA, [facility] [id number] [place] 00:00:00 00:00:[address] POWER [address] 2020-05-06 2020-05-06 [facility] Beat[facility] [id number] 4-20 [facility] 12:00:00 12:00:00 Maurice [id number] [facility] [place], [facility] 2020-05-03 2020-05-03 Outpatient MICCOSUKEE, [facility] [id number] [place] 00:00:00 00:00:00 RG [address] 2020-03-22 2020-03-22 Outpatient MICCOSUKEE, [facility] [id number] [place] 00:00:00 00:00:00 RG [address] 2019-09-09 2019-09-09 [facility] [id number] [place] 11:00:00 11:00:00 t; Ángel GEE M.D. [place] [facility] NORMAN, M.D. 2018-07-19 2018-07-19 [address]AND[address] [facility] [id number] [place] 10:30:00 10:30:00 t; MAURICE, Ortho and Phys georges HENDERSON M.D. Spine WLS Mariam Cyr M.D. [place] 2017-02-22 2017-02-22 XANDER Butler UTP [id number] [place] 10:30:00 10:30:00 t; MAURICE Physic i Nagi HENDERSON M.D. 2015-10-19 2015-10-19 Outpatient MHIE MHIE [id number] [place] 11:00:00 11:00:00 00 l [place] 2015-10-19 2015-10-19 Outpatient MHIE MHIE [id number] [facility] 11:00:00 11:00:00 00 [facility] 2014-05-04 2014-05-04 [facility] [id number] [facility] 14:42:00 19:00:00 Outpatient r [place] 01 [facility] 2014-05-04 2014-05-[address] [facility] [id number] [facility] 14:42:00 19:00:00 Outpatient r [place] 01 [facility] 2014-05-04 2014-05-04 Outpatient Ertan, 2.16.840. 2.16.840.1. 4 [id number] 09:42:00 14:00:00 [place] 1.727503. 181925.3.61 01 3.615.0.1 5.0.766 30 4283-07-30 2014-04-30 [facility] [id number] Memoria 20:37:00 04:59:00 r [place] 00 [facility] 2014-04-29 2014-04-[address] [facility] [id number] Memoria 20:37:00 04:59:00 r [place] [facility] 2014-04-29 2014-04-29 Outpatient Ertan, 2.16.840. 2.16.840.1. 4 [id number] 15:37:00 23:59:00 [place] 1.155162. 312530.3.61 00 3.615.0.1 5.0.101 01 Results Test Description Test Time Test Comments Results Result Comments Source Lipid panel 2022-03-01 11:21:00 Test Item Value Reference Range Interpretation Comme nts Cholesterol, total 150 mg/dL See_Comment [Automat ed message] The (test code = 2093-3) system which generated this result tra nsmitted reference range : <=200. The reference r adriana was not used to int erpret this result as normal/abnormal . HDL cholesterol (test 70 mg/dL See_Comment [Auto mated message] The code = 2085-9) system which generated this result tra nsmitted reference range : > OR = 50. The referen ce range was not used to interpret this result as normal/abnormal . Triglycerides (test 110 mg/dL See_Comment [Automa napoleon message] The code = 2571-8) system which generated this result tra nsmitted reference range : <=150. The reference r adriana was not used to int erpret this result as normal/abnormal . LDL cholesterol mg/dL (calc) Reference ra nge: <100 calculated (test code = Denice agarwal range <100 32202-1) mg/dL for prima ry prevention; <70 mg/dL for patients with C HD or diabetic patien ts with > or = 2 CHD risk factors. LDL-C is now ca lculated using the Imani Zamorano calculation, wh ich is a validated novel method providing carie r accuracy than the Friede ekaterina equation in the estimation of L DL-C. Bakari SS et al . RITA. 2013;310(03): 3 061-5136 (http://educati onActual Experience.Death by Party/f aq/IPM261) Cholesterol/HDL ratio See_Comment [Auto mated message] The (test code = 9830-1) system which generated this result tra nsmitted reference range : <5.0 (calc). The ref erence range was not u sed to interpret this result as normal/abnormal . Non-HDL cholesterol See_Comment For sharda ents with (test code = 72994-3) diabet es plus 1 major ASCVD risk fact or, treating to a n on-HDL-C goal of <100 mg /dL (LDL-C of <70 mg/dL) i s considered a th erapeutic option. [Automa napoleon message] The sy stem which generated this result transmitted ref erence range: <130 mg/ dL (calc). The reference r adriana was not used to int erpret this result as normal/abnormal . HARJIT (test code = HARJIT) FASTING: UNKNOWN RAC (test code = RAC) Performing Organization Information: Site ID: JEANETTEA Name: [facility] Address: [address] [place] [id number] Director: Devaughn Lr [facility] [id number] 11:21:00 Test Item Value Reference Interpretation Comments Range Hemoglobin A1C See_Comment H For someone w david (test code = known diabetes, a 4548-4) hemoglobin A1c value between 5.7% an d 6.4% is consist ent withprediabetes and should be confi rmed with a follow-u p test. For someo ne with known diab etes, a value <7%indicates that their diabetes is well controlled . Z8djmwwwvy shou ld be individualized based on duration ofdiabetes, age , comorbid condit ions, and otherconsiderat ions. This assay resu lt is consistent with an increased risko f diabetes. Curre ntly, no consensus ex ists regarding use ofhemoglobin A1 c for diagnosis of diabetes for children. NO COLLECTION DATE RECEIVED. WE TERESA VE USEDTHE DATE TH E SPECIMEN WAS RECEIVED BY [facility] THE COLLECTION DATE. IF THISIS INCOR RECT, PLEASE CONTACT CLIENT SERVICES.PHONE NUMBER: [Automated mess age] The system [employer] generated this result transmit napoleon reference range : <5.7 % of total Hgb. The reference r adriana was not used to interpret this result as normal/abnormal . HARJIT (test code = FASTING: UNKNOWN HARJIT) RAC (test code = Performing RAC) Organization Information: Site ID: RGA Name: [facility] Address: [address] [place] [phone] Director: Devaughn Lr Lab Interpretation Abnormal (test code = 49382-9) [facility] 25 hydroxy [id number] 11:21:00 Test Item Value Reference Range Interpretation Comments Vitamin D, 25-hydroxy 110 ng/mL 30-100 H Vitami n D Status (test code = 1988-11) 25-OH V itamin D: Deficiency: <20 ng/mLInsufficie n cy: 20 - 29 ng/mLOptimal: > or = 30 ng/mL For 25-OH Vitamin D testing on patients on D2-supplementat i on and patients for whom quantitation of D2 and D3 fractions is required, the QuestAssureD(TM ) 25-OH VIT D, (D2,D3), LC/MS/MS is recommended: order code 9288 8 (patients >2yrs).See Note 1 Note 1 For additional information, please refer to http://educatio n .SaaSAssuranceostnPario/faq/FAQ19 9 (This link is being provided for informational/e d ucational purposes only.) HARJIT (test code = HARJIT) FASTING: UNKNOWN RAC (test code = RAC) Performing Organization Information: Site ID: A Name: [facility] Address: [address] [place] [address] Director: Devaughn Lr Lab Interpretation Abnormal (test code = 13752-3) [facility] reflex to [id number] 11:21:00 Test Item Value Reference Range Interpretation Comments TSH reflex to See_Comment [Automated FT4 (test code message] The system = 3016-3) which generated this result transmitted reference range : 0.40 - 4.50 mIU /L. The reference r adriana was not used to interpret this result as normal/abnormal . HARJIT (test code FASTING: UNKNOWN = HARJIT) RAC (test code Performing = RAC) Organization Information: Site ID: A Name: [facility] Address: [address] [place] [address] Director: Devaughn Lr [facility] C [id number] 10:22:00 Test Item Value Reference Range Interpretation Comments Hepatitis C Ab NON-REACTIVE NON-REACTIVE (test code = 02898-2) Signal/cutoff See_Comment HCV antibody was (test code = [place] [address]-8) is no laborator y evidence of HCV infection. In m ost cases, no furth er action is requi red. However,if rece nt HCV exposure is suspected, a te st for HCV RNA(som t code 14481) is suggested. For additional information ple ase refer tohttp://educat ion.Twenga/ faq/VZI60w6(Thi s link is being provided for informational/e ducat ional purposes only.) NO COLLE CTION DATE RECEIVED. WE HAVE USEDTHE DA TE THE SPECIMEN WA S RECEIVED BY [facility] THE COLLECTION DATE. IF THISIS INCOR RECT, PLEASE CONTACT CLIENT SERVICES.PHONE NUMBER: [Automated mess age] The system [employer] generated this result transmit napoleon reference range : <=1.00. The reference range was not used to interpret this result as normal/abnormal . HARJIT (test code = FASTING: UNKNOWN HARJIT) RAC (test code = Performing RAC) Organization Information: Site ID: RGA Name: [facility] Address: [address] [place] [phone] Director: Sylmar Miryam CasianoBe [facility][] LIPID [id number] 10:52:00 Test Item Value Reference Range Interpretation Comments CHOLESTEROL, TOTAL; 149 mg/dl <200 N Normal (test code = 2093-3) HDL CHOLESTEROL; 67 mg/dl > OR = 50 N Normal (test code = 2085-9) TRIGLYCERIDES; 102 mg/dl <150 N Normal (test code = 2571-8) LDL-CHOLESTEROL; 63 {MG/DL KYARA} N Reference range: Normal (test code = <100 Anselmo irable range 63547-6) <100 mg/dL for primary prevent ion; <70 mg/dL for patients with C HD or diabetic patien ts with > or = 2 C HD risk factors. L DL-C is now calculat ed using the Winter calculation, wh ich is a validated novel method providin g better accuracy than the Friedewald equation in the estimation of L DL-C. Bakari DOMINGUEZ et al . RITA. 2013;310( 19): 6736-8227 (http://educati on.Tactilize estCollabRx, Inc.. com/f aq/LKS412) CHOL/HDLC RATIO 2.2 {CALC} <5.0 N (test code = CHOL/HDLC RATIO) NON HDL CHOLESTEROL 82 {MG/DL KYARA} <130 N For pa tients with (test code = NON HDL diabete s plus 1 CHOLESTEROL) major ASCVD ris k factor, treatin g to a non-HDL-C goa l of <100 mg/dL (LDL -C of <70 mg/dL) is considered a therapeutic opt ion. [facility][QL] BASIC METABOLIC PANEL [id number] 10:52:00 Test Item Value Reference Range Interpretation Comments GLUCOSE; Above 104 mg/dl 65-99 Fasting refer ence High Threshold interval For someone (test code = without known d sherry, 1547-9) a glucose value between 100 and 125 mg/ dL is consistent withprediabetes and should be confi rmed with afollow-up test. UREA NITROGEN 20 mg/dl 7-25 N (BUN) (test code = UREA NITROGEN (BUN)) CREATININE (test 0.98 mg/dl 0.60-0.93 For patient s >49 years code = CREATININE) of age, t he reference limitfor Creati nine is approximately 1 3% higher for peopleidentifie d as -Mary Kay n. eGFR NON-AFR. 55 > OR = 60 BANGLADESHI (test {ML/MIN/1.7} code = eGFR NON-AFR. BANGLADESHI) eGFR 64 > OR = 60 N BANGLADESHI (test {ML/MIN/1.7} code = eGFR ) BUN/CREATININE 20 {CALC} 6-22 N RATIO (test code = BUN/CREATININE RATIO) SODIUM (test code 140 mmol/L 135-146 N = SODIUM) POTASSIUM (test 4.2 mmol/L 3.5-5.3 N code = POTASSIUM) CHLORIDE (test 100 mmol/L 98-110 N code = CHLORIDE) CARBON DIOXIDE 34 mmol/L 20-32 (test code = CARBON DIOXIDE) CALCIUM (test code 10.1 mg/dl 8.6-10.4 N = CALCIUM) [facility][QL] HEMOGLOBIN [id number] 10:52:00 Test Item Value Reference Range Interpretation Comments HEMOGLOBIN A1c; 5.9 {% of <5.7 For someone without Above High total} known diabetes, a Threshold (test hemoglobin A 1c value code = 4548-4) between 5.7% and 6.4% is consistent withprediabetes and should be confi rmed with a follow-u p test. For someone wit h known diabetes, a aman ue <7%indicates that their diabetes is well controlled. A1c targets should be individualized based on duration ofdiab etes, age, comorbid conditions, and otherconsiderat ions. This assay resu lt is consistent with an increased risko f diabetes. Curre ntly, no consensus exist s regarding use ofhemoglobin A1 c for diagnosis of di abetes for children. 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 COMPARISON: Chest radiograph 09/09/2019. TECHNIQUE: PA and lateral chest radiographs. FINDINGS: Lines, tubes and hardware: None. Lungs and pleura: Pulmonary vascularity is normal. The lungs are hyperinflated but overall clear. The costophrenic sulci are sharp without effusion. No pneumothorax is identified. Heart and mediastinum: The heart size is normal. The mediastinal contours are normal. Bones and soft tissues: No acute abnormality. Generalized osteopenia and thoracic kyphosis without acute vertebral body compression fracture identified. IMPRESSION: 1. Pulmonary hyperinflation. No focal consolidation or pleural effusion. 09/20/2020 11:25 AM ROPE LAYING MACHINE OPERATOR Fern Grace [facility][QL] HEMOGLOBIN [id number] 12:30:01 Test Item Value Reference Range Interpretation Comments Hemoglobin A1c; Above High Threshold 5.9 % <=5.6 (test code = 4548-4) [facility]] [id number] 12:30:01 Test Item Value Reference Range Interpretation Comments Glucose Lvl (test 98 mg/dl 70-99 Adult refe rence range code = 2345-7) values reflec t the clinical guidel inesof the [place] Diabet es [employer]. [facility][QL] LIPID [id number] 12:30:01 Test Item Value Reference Range Interpretation Comments Chol (test code = 2093-3) 156 mg/dl <=199 Trig (test code = 2571-8) 91 mg/dl <=149 HDL Cholesterol (test code = 65 mg/dl >=61 2085-9) LDL (test code = 55819-1) 73 mg/dl <=99 CHD Risk; Below Low Threshold (test 2.40 3.90-5.80 code = 04906-8) VLDL (test code = VLDL) 18 [facility][U] XRAY CHEST 2 VWS [id number] 12:13:00 Test Item Value Reference Range Interpretation Comments XR CHEST 2 VWS EXAM: XR CHEST 2 VWS DATE: (test code = XR 09/09/2019 12:24 PM ROPE LAYING MACHINE OPERATOR CHEST 2 VWS) INDICATION: Cough COMPARISON: 07/09/2018. TECHNIQUE: PA and lateral views FINDINGS: PA and lateral chest x-rays reveal linear subsegmental atelectasis or scarring in the left lower lung laterally on the PA view. The cardiac silhouette is mildly enlarged. Mild peribronchial cuffing/thickening is seen centrally within both lungs. Pulmonary vascular structures are normal in appearance. There is mild kyphosis of the thoracic spine with multilevel spondylosis. Diffuse osteopenia is present. IMPRESSION: 1. Mild central peribronchial cuffing/thickening, fairly stable from the prior exam, and possibly related to chronic bronchitis or reactive airway disease.2. Linear scarring or subsegmental atelectasis in the lateral aspect of the left lower lung.3. Borderline mild cardiomegaly has developed. 09/09/2019 12:41 PM ROPE LAYING MACHINE OPERATOR Perry Barth [facility][QLH] T3 [id number] 11:43:01 Test Item Value Reference Range Interpretation Comments T3 Uptake (test code = 3050-2) 31 % 31-39 [facility][QLH] T4, TOTAL (THYROXINE)2018-07-19 11:43:01 Test Item Value Reference Range Interpretation Comments Thyroxine (test code = 3026-2) 10.9 ug/dL 4.7-13.3 [facility][QLH] TSH, 3RD [id number] 11:43:01 Test Item Value Reference Range Interpretation Comments TSH (test code = 75242-9) 1.610 {uIU/ml} 0.360-3.740 [facility][H] Free Thyroxine [id number] 11:43:01 Test Item Value Reference Range Interpretation Comments Free Thyroxine Index (test code = 3.4 60217-0) [facility][QLH] CBC (INCLUDES DIFF/PLT)2018-07-19 11:43:01 Test Item Value Reference Range Interpretation Comments WBC (test code = 6690-2) 6.9 {K/CMM} 3.7-10.4 RBC; Below Low Threshold (test 4.08 {M/CMM} 4.20-5.40 code = 789-8) Hgb (test code = 718-7) 12.9 g/dl 12.0-16.0 Hct (test code = 42627-4) 39.2 % 36.0-48.0 MCV (test code = 787-2) 96.1 fL 80.0-98.0 MCH; Above High Threshold (test 31.7 pg 27.0-31.0 code = 785-6) MCHC (test code = 786-4) 33.0 g/dl 32.0-36.0 RDW; Above High Threshold (test 14.7 % 11.5-14.5 code = 788-0) Platelet (test code = 04036-7) 257 {K/CMM} 133-450 Mean Platelet Volume; Above High 10.7 fL 7.4-10.4 Threshold (test code = 55182-3) [facility][QL] [id number] 11:43:01 Test Item Value Reference Range Interpretation Comments Segmented Neutrophils (test code 69.8 % 45.0-75.0 = 33182-8) Monocytes (test code = 77789-9) 10.4 % 2.0-12.0 Lymphocytes; Below Low Threshold 16.9 % 20.0-40.0 (test code = 61729-8) Eosinophils (test code = 28866-0) 2.1 % 0.0-4.0 Basophils (test code = 706-2) 0.8 % 0.0-1.0 Segs-Bands # (test code = 4.8 {K/CMM} 1.5-8.1 08082-5) Lymphocytes # (test code = 1.2 {K/CMM} 1.0-5.5 14331-9) Monocytes # (test code = 45546-9) 0.7 {K/CMM} 0.0-0.8 Eosinophils # (test code = 0.1 {K/CMM} 0.0-0.5 12721-9) Basophils # (test code = 30585-1) 0.1 {K/CMM} 0.0-0.2 [facility][QL] URINALYSIS, [id number] 11:43:01 Test Item Value Reference Range Interpretation Comments UA Turbidity (test code = 23195-5) Clear Clear UA Spec Grav (test code = 5810-7) 1.017 <=1.030 UA pH (test code = 5803-2) 6.0 5.0-8.0 UA Protein (test code = 18621-2) Negative Negative UA Glucose (test code = 60395-3) Negative Negative UA Ketones (test code = 06163-7) Negative Negative UA Bili (test code = 5770-3) Negative Negative UA Blood (test code = 5794-3) Negative Negative UA Nitrite (test code = 5802-4) Negative Negative UA Leuk Est (test code = 5799-2) Negative Negative UA RBC (test code = 37127-6) <1 0-2 UA WBC (test code = 00141-8) <1 0-5 UA Bacteria (test code = 09323-1) Occasional None Seen UA Sq Epi (test code = 11053-5) None Seen UA Color (test code = 5778-6) Yellow UROBILINOGEN (test code = 75486-9) <=1.0 0.1-1.0 [facility][QL] CMP [id number] 11:43:01 Test Item Value Reference Range Interpretation Comments Sodium Level 141 {mEq/l} 135-145 (test code = 2951-2) Potassium Level 4.1 {mEq/l} 3.5-5.1 (test code = 2823-3) Chloride Level 103 {mEq/l} 95-109 (test code = 5-0) Carbon Dioxide 28 {mEq/l} 24-32 (test code = 2027-9) AGAP (test code = 14.1 {mEq/l} 10.0-20.0 01194-0) Glucose Lvl (test 91 mg/dl 70-99 Adult refe rence range code = 2345-7) values reflec t the clinical guidel inesof the [place] [employer]. Creatinine Lvl 1.00 mg/dl 0.50-1.40 (test code = 2160-0) Blood Urea 25 mg/dl 7-22 Nitrogen; Above High Threshold (test code = 3094-0) BUN/Creatinine 25 6-25 Ratio (test code = 3097-3) Total Protein 7.2 g/dl 6.4-8.4 (test code = 2885-2) Albumin Lvl (test 4.0 g/dl 3.5-5.0 code = 1751-7) Globulin (test 3.2 g/dl 2.7-4.2 code = 63146-3) A/G Ratio (test 1.2 0.7-1.6 code = 1759-0) Calcium Level 9.8 mg/dl 8.5-10.5 Total (test code = 75941-0) ALT (test code = 27 u/l 0-65 1743-4) AST (test code = 23 u/l 0-37 32289-4) Alk Phos (test 64 u/l 39-136 code = 1783-0) Bili Total (test 0.6 mg/dl 0.2-1.3 code = 1975-2) eGFR (test code = 55 The eGFR i s calculated 92251-1) {ML/MIN/1.7} using the CKD-E PI formula. In mos t young, healthyindividu als the eGFR will be >9 0 mL/min/1.73m2. The eGFR declines with a ge. AneGFR of 60-89 may be normal in some population s, particularly th e elderly, forwhom the CKD -EPI formula has not been extensively aman idated. Use of the eGFR isnot recommended in the following populations:Ind ividuals with unstable c reatinine concentrations, including patient s and those with seri ous co-morbid conditions.Sharda ents with extremes in mus bernardo mass or diet.The artie a above are obtained fr om the National Kidney Disease Education Progr am(NKDEP) which additiona lly recommends that when the eGFR is used in patientswith ex tremes of body mass index for purposes of felice g dosing, the eGFR should be multiplied by t he estimated BMI. [facility]] LIPID [id number] 11:43:01 Test Item Value Reference Range Interpretation Comments Chol (test code = 3-3) 165 mg/dl <=199 Trig (test code = 2571-8) 82 mg/dl <=149 HDL Cholesterol (test code = 64 mg/dl >=61 5-9) CHD Risk; Below Low Threshold (test 2.58 3.90-5.80 code = 50092-9) LDL (test code = 04623-9) 85 mg/dl <=99 VLDL (test code = VLDL) 16 [facility][U] XRAY CHEST 2 VWS [id number] 11:09:00 Test Item Value Reference Range Interpretation Comments XR CHEST 2 VWS EXAM: XR CHEST 2 VWS DATE: (test code = XR 07/19/2018 12:22 PM CDT CHEST 2 VWS) INDICATION: Physical COMPARISON: None available TECHNIQUE: PA and lateral chest radiographs DISCUSSION: Lungs are hyperinflated.No pulmonary or pleural-based abnormality is identified. Pulmonary vascularity is normal. The heart size is normal. Mildly calcified and tortuous aorta. No acute bony abnormality is identified. IMPRESSION:1. Hyperinflation of the lungs.2. No acute cardiopulmonary abnormality. 07/24/2018 7:54 PM CDT Julio Suarez [facility]
[2023-03-31 09:21] LABS: Absolute Lymphocytes (CBC) 0.6 K/uL (0.7-4.9); Hematocrit 35.4 % (36.0-45.0); Lymphocytes % 5.8 % (15.3-44.8); MCV 91.5 fL (80-100); MPV 9.3 fL (7.6-11.3); RBC Red Blood Cell Count 3.87 M/uL (3.86-4.86)
[2023-03-31 09:27] LABS: Potassium 3.8 mEq/L (3.5-5.1)
--- NOTE | 2023-03-31 10:01 | RAD REPORT ---
EXAM DESCRIPTION: RAD - Ankle Right 3 View - 03/31/2023 9:25 am CLINICAL HISTORY: PAIN COMPARISON: No comparisonsNo comparisons TECHNIQUE: Right ankle, 3 views. FINDINGS: No fracture, dislocation or periosteal reaction. No joint effusion seen. No joint space na rrowing. No soft tissue abnormality. IMPRESSION: Negative right ankle
--- NOTE | 2023-03-31 10:03 | RAD REPORT ---
EXAM DESCRIPTION: US - Extremity Venous Uni Ltd - 03/31/2023 9:25 am CLINICAL HISTORY: Swelling COMPARISON: None. TECHNIQUE: Real-time sonographic evaluation of the right lower extremity deep venous system was perf ormed. FINDINGS: Normal compressibility, flow augmentation, phasic flow and spontaneous flow is identified in the right lower extremity deep venous system. No intraluminal filling defects seen. IMPRESSION: No DVT in the right lower extremity.
--- NOTE | 2023-03-31 10:14 | EDPHYS ---
Physician Documentation [facility] Name: Meagan Berger Age: 83 yrs Sex: Female : 1940 Arrival Date: 03/31/2023 Time: 08:31 Bed 5 Private MD: ED Physician Babar Doyle HPI: 03/31 08:45 This 83 yrs old Female presents to ER via Ambulatory with complaints of Ankle Swelling. jmm 08:45 The patient presents with swelling. Onset: The symptoms/episode began/occurred jmm gradually, 2 day(s) ago. Associated signs and symptoms: Pertinent negatives: fever. This is an 83/f with with a history of htn that presents to the ED with complaints of right ankle pain and swelling beginning approx 2 days ago. Patient states ankle was initially red, redness has resolved. Denies fever, denies trauma. Historical: - Allergies: 08:46 No Known Allergies; ss - PMHx: 08:46 Hypertension; ss - Immunization history:: Client reports receiving the 2nd dose of the Covid vaccine. - Social history:: Smoking status: Patient denies any tobacco usage or history of. ROS: 08:45 Constitutional: Negative for fever, chills, and weight loss, Cardiovascular: Negative jmm for chest pain, palpitations, and edema, Respiratory: Negative for shortness of breath, cough, wheezing, and pleuritic chest pain. 08:45 MS/extremity: Positive for swelling. 08:45 All other systems are negative. Exam: 08:45 Constitutional: This is a well developed, well nourished patient who is awake, alert, jmm and in no acute distress. Head/Face: atraumatic. Eyes: EOMI, no conjunctival erythema appreciated ENT: Moist Mucus Membranes Neck: Trachea midline, Supple Chest/axilla: Normal chest wall appearance and motion. Cardiovascular: Regular rate and rhythm. No edema appreciated Respiratory: Normal respirations, no respiratory distress appreciated Abdomen/GI: Non distended Back: Normal ROM 08:45 Musculoskeletal/extremity: swelling noted to the right ankle, compartments are soft, NVI. 08:45 Skin: petechia noted to the right ankle. 08:45 Neuro: Orientation: is normal, Mentation: is normal, Memory: is normal. 08:45 Psych: Behavior/mood is pleasant, cooperative. Vital Signs: 08:43 BP 139 / 61; Pulse 88; Resp 16; Temp 98(O); Pulse Ox 98% ; Weight 55.79 kg; Height 5 ss ft. 3 in. ; Pain 2/10; 10:30 BP 132 / 68; Pulse 85; Resp 16; Pulse Ox 99% on R/A; ko1 08:43 Body Mass Index 21.79 (55.79 kg, 160.02 cm) ss 08:43 Pain Scale: Adult ss MDM: 08:45 Patient medically screened. [facility] 08:45 Differential diagnosis: DVT, cellulitis, hemarthrosis, peripheral edema, cellulitis. [facility] 10:10 Data reviewed: vital signs, nurses notes. I considered the following discharge [facility] prescriptions or medication management in the emergency department Medications were administered in the Emergency Department. See MAR. Counseling: I had a detailed discussion with the patient and/or guardian regarding: the historical points, exam findings, and any diagnostic results supporting the discharge/admit diagnosis, lab results, radiology results, the need for outpatient follow up, to return to the emergency department if symptoms worsen or persist or if there are any questions or concerns that arise at home. 03/31 08:51 Order name: CBC with Diff; Complete Time: 09:28 [facility] 03/31 08:51 Order name: BMP; Complete Time: 09:28 [facility] 03/31 08:51 Order name: Uric Acid; Complete Time: 09:28 [facility] 03/31 08:51 Order name: US Extremity Venous Unilateral Ltd; Complete Time: 10:05 [facility] 03/31 09:25 Order name: Ankle Right 3 View; Complete Time: 10:02 [facility] 03/31 08:51 Order name: Saline Lock; Complete Time: 09:10 [facility] 03/31 10:10 Order name: Dixon wrap-joint; Complete Time: 10:28 [facility] Administered Medications: No medications were administered Disposition: 11:10 Co-signature as Attending Physician, Babar Doyle MD I reviewed the patient's care rn provided by the Advanced Practice Provider and agree with the diagnosis and treatment plan. Disposition Summary: 03/31/23 10:12 Discharge Ordered Location: Home [facility] Condition: Stable [facility] Diagnosis - Peripheral Edema [facility] Followup: [facility] - With: Private Physician - When: 2 - 3 days - Reason: Recheck today's complaints, Continuance of care, Re-evaluation by your physician Followup: [facility] - With: Chase Velasco MD - When: 2 - 3 days - Reason: Recheck today's complaints, Continuance of care, Re-evaluation by your physician Discharge Instructions: - Discharge Summary Sheet jm - RICE Therapy for Routine Care of Injuries jmm - Peripheral Edema [facility] Forms: - Medication Reconciliation Form [facility] - Thank You Letter [facility] - Antibiotic Education [facility] - Prescription Opioid Use [facility] - [email or web address] [facility] Signatures: Dispatcher [employer] EDMS Franklin Arrieta PA PA jmm Nieto, Roman, MD MD rn Laura Archibald RN RN ss Corrections: (The following items were deleted from the chart) 09:25 08:52 Ankle Left 3 View+RAD.RAD.BRZ ordered. [facility]
--- NOTE | 2023-03-31 10:14 | ER ---
Nurse's Notes [facility] Name: Meagan Berger Age: 83 yrs Sex: Female : 1940 Arrival Date: 03/31/2023 Time: 08:31 Bed 5 Private MD: Diagnosis: Peripheral Edema Presentation: 03/31 08:43 Chief complaint: Patient states: Redness and tenderness to R ankle that began 2 days ss ago. Denies fever. Coronavirus screen: Client denies travel out of the [place] in the last 14 days. Ebola Screen: Patient denies exposure to infectious person. Patient denies travel to an Ebola-affected area in the 21 days before illness onset. Initial Sepsis Screen: Does the patient meet any 2 criteria? No. Patient's initial sepsis screen is negative. Does the patient have a suspected source of infection? No. Patient's initial sepsis screen is negative. Risk Assessment: Do you want to hurt yourself or someone else? Patient reports no desire to harm self or others. Onset of symptoms was March 31, 2023. 08:43 Method Of Arrival: Ambulatory ss 08:43 Acuity: RAMESH 3 ss Historical: - Allergies: 08:46 No Known Allergies; ss - PMHx: 08:46 Hypertension; ss - Immunization history:: Client reports receiving the 2nd dose of the Covid vaccine. - Social history:: Smoking status: Patient denies any tobacco usage or history of. Screenin:22 [facility] ED Fall Risk Assessment (Adult) History of falling in the last 3 months, ph including since admission No falls in past 3 months (0 pts) Confusion or Disorientation No (0 pts) Intoxicated or Sedated No (0 pts) Impaired Gait No (0 pts) Mobility Assist Device Used No (0 pt) Altered Elimination No (0 pt) Score/Fall Risk Level 0 - 2 = Low Risk Oriented to surroundings, Maintained a safe environment, Hourly rounding (assess needs \T\ fall precautionary measures) done. Abuse screen: Denies threats or abuse. Denies injuries from another. Nutritional screening: No deficits noted. Tuberculosis screening: No symptoms or risk factors identified. Assessment: 08:50 General: Appears in no apparent distress. comfortable, Behavior is calm, cooperative, ko1 appropriate for age. Pain: Complains of pain in right ankle. Neuro: No deficits noted. Cardiovascular: No deficits noted. Respiratory: No deficits noted. GI: No deficits noted. : No deficits noted. EENT: No deficits noted. Derm: No deficits noted. Musculoskeletal: Reports right ankle swelling. Vital Signs: 08:43 BP 139 / 61; Pulse 88; Resp 16; Temp 98(O); Pulse Ox 98% ; Weight 55.79 kg; Height 5 ss ft. 3 in. ; Pain 2/10; 10:30 BP 132 / 68; Pulse 85; Resp 16; Pulse Ox 99% on R/A; ko1 08:43 Body Mass Index 21.79 (55.79 kg, 160.02 cm) ss 08:43 Pain Scale: Adult ss ED Course: 08:33 Patient arrived in ED. rg4 08:36 Franklin Arrieta PA is PHCP. jmm 08:36 Babar Doyle MD is Attending Physician. jmm 08:38 Tari Eastman, RN is Primary Nurse. ko1 08:46 Triage completed. ss 08:46 Arm band placed on right wrist. ss 09:00 Inserted saline lock: 20 gauge in left antecubital area, using aseptic technique. Blood ko1 collected. 09:10 Patient has correct armband on for positive identification. Bed in low position. Call ko1 light in reach. Side rails up X 1. Pulse ox on. NIBP on. Door closed. Noise minimized. Lights dimmed. Warm blanket given. 09:10 Uric Acid Sent. ko1 09:10 BMP Sent. ko1 09:10 CBC with Diff Sent. ko1 09:25 Ankle Right 3 View In Process Unspecified. EDMS 09:27 US Extremity Venous Unilateral Ltd In Process Unspecified. EDMS 10:14 Chase Velasco MD is Referral Physician. jmm 10:30 Dixon wrap to right ankle. ko1 10:30 No provider procedures requiring assistance completed. IV discontinued, intact, ko1 bleeding controlled, No redness/swelling at site. Pressure dressing applied. Administered Medications: No medications were administered Medication: 10:30 VIS not applicable for this client. ko1 Outcome: 10:12 Discharge ordered by . jmm 10:30 Discharged to home ambulatory, with family. ko1 10:30 Condition: stable 10:30 Discharge instructions given to patient, family, Instructed on discharge instructions, follow up and referral plans. medication usage, Demonstrated understanding of instructions, follow-up care, medications. 10:35 Patient left the ED. ko1 Signatures: Dispatcher [employer] EDMS Franklin Arrieta PA PA jmm Blanchard, Shelby, RN RN Meagan Villa RN RN Freda Russell 4 Tari Eastman RN RN ko1 Corrections: (The following items were deleted from the chart) 09:23 08:50 Pain: Denies pain. ko1 ko1
[2023-03-31 11:11] VITALS: TEMP 98
[2023-03-31 11:12] VITALS: BP 132/68; O2SAT 99
== END 2023-03-31 10:35 | disposition home or self-care (01) ==
LOC: ER 08:31
DX: R60.9 Edema, unspecified (principal); I10 Essential (primary) hypertension
CPT/HCPCS: 36415; 80048; 84550; 85025; 93971; 99284